=== PATIENT | male | born 1940 | race Caucasian/White ===

== ENCOUNTER 2020-12-21 13:40 | Inpatient (IN) | payer OTHER, MEDICARE, SELFPAY ==
[2020-12-21] VITALS (9 sets, daily range): BP systolic 123–135; BP diastolic 70–78; PULSE 68–116; RESP 18–25; TEMP 19.6–37.3; O2SAT 90–95; BMI 26.5
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
--- NOTE | 2020-12-21 14:03 | XRR_ITS ---
PROCEDURE INFORMATION: Exam: XR Chest Exam date and time: 12/21/2020 2:03 PM Age: 80 years old Clinical indication: Cough and shortness of breath; Patient HX: Short of breath, cough, congestion; Additional info: Covid TECHNIQUE: Imaging protocol: XR of the chest. Views: 1 view. COMPARISON: CT Abdomen/Pelvis Renal [id number] 11/18/2016 9:03 AM FINDINGS: Lungs: Suggestion of subtle peripheral opacities are scarring throughout both lungs. Left costophrenic blunting most likely secondary to scarring versus trace pleural effusion. Pleural spaces: Please see lung section. No pneumothorax. Heart/Mediastinum: Unremarkable. No cardiomegaly. Bones/joints: Sequela of ACDF in the lower cervical spine. XR/XR chest 1V portable [id number] IMPRESSION: Subtle peripheral opacities within both lungs, most suggestive of either multifocal pneumonia or scarring.
--- NOTE | 2020-12-21 14:04 | ECG_ITS ---
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 Measurements Intervals [place] Rate: 105 P: 35 MT: 136 QRS: 118 QRSD: 154 T: 23 QT: 368 QTc: 487 Interpretive Statements SINUS TACHYCARDIA RIGHT AXIS DEVIATION [QRS AXIS > 100] RIGHT BUNDLE BRANCH BLOCK [120+ ms QRS DURATION, UPRIGHT V1, 40+ ms S IN I/aVL/V4/V5/V6] No previous ECG available for comparison Electronically Signed On 12-21-2020 23:58:26 CDT by Bakari Wilson M.D. [id number]
[2020-12-21] MEDS: benzonatate 100 mg Capsule PO (14:20)
[2020-12-21] MEDS: ondansetron 2 mg/ML SDV 2 mL 4 MG IV (14:20)
[2020-12-21] MEDS: acetaminophen 325 mg Tablet 650 MG PO (14:20)
[2020-12-21] MEDS: sodium chloride 0.9% 1,000 ML 999 ML IV ×2 (14:21→15:54)
[2020-12-21 14:33] LABS: Basophils % 0.1 %; Hematocrit 46.8 % (42.0-52.0); Hemoglobin 15.9 g/dL (11.7-16.6); Lymphocytes # 0.8 10^3/uL (0.8-4.8); Mean Corpuscular Hemoglobin 31.7 pg (28.0-34.0); Mean Corpuscular Volume 93.2 fl (80-94); Monocytes # 0.3 10^3/uL (0.2-0.9); Monocytes % 2.7 %; Neutrophils # 8.43 10^3/uL (1.8-7.7); Neutrophils % 88.3 %; Nucleated Red Blood Cells % 0 %; Platelet Count 427 10^3/cmm (130-400); Red Blood Count 5.02 10^6/uL (4.1-5.3); Red Cell Distribution Width 12.5 % (12.1-15.1); White Blood Count 9.6 10^3/uL (4.0-10.0)
--- NOTE | 2020-12-21 14:50 | CTR_ITS ---
PROCEDURE INFORMATION: Exam: CTA Chest With Contrast Exam date and time: 12/21/2020 2:50 PM Age: 80 years old Clinical indication: Cough and shortness of breath; Additional info: Hypoxemia, tachycardia, chest pain TECHNIQUE: Imaging protocol: Computed tomographic angiography of the chest with contrast. 3D rendering (Not supervised by radiologist): MIP and/or 3D reconstructed images were created by the technologist. Radiation optimization: All CT scans at this facility use at least one of these dose optimization techniques: automated exposure control; mA and/or kV adjustment per patient size (includes targeted exams where dose is matched to clinical indication); or iterative reconstruction. Contrast material: OMNI 350; Contrast volume: 95 ml; Contrast route: INTRAVENOUS (IV); COMPARISON: CR XR chest 1V portable [id number] 12/21/2020 2:30 PM RADIATION DOSE METRICS: Total DLP (mGy-cm): 571.69 FINDINGS: Pulmonary arteries: Normal. No pulmonary emboli. Aorta: Unremarkable. No aortic aneurysm. No aortic dissection. Lungs: Peripheral ground-glass opacities throughout both lungs. There is suggestion of early traction bronchiectasis/fibrosis in the region of the opacities. Pleural spaces: Unremarkable. No pneumothorax. No pleural effusion. Heart: Unremarkable. No cardiomegaly. No pericardial effusion. Lymph nodes: Unremarkable. No enlarged lymph nodes. Stomach and bowel: Large hiatal hernia containing the majority of the stomach. Bones/joints: No acute fracture. Sequela of ACDF in the lower cervical spine. Soft tissues: Unremarkable. CT/CT angio chest PE protcl [id number] IMPRESSION: 1. Negative for pulmonary embolism. 2. Peripheral ground-glass opacities throughout both lungs consistent with COVID pneumonia. Imaging appearance is suggestive of early traction bronchiectasis/fibrosis in the region of the opacities. 3. Large hiatal hernia noted containing the majority of the stomach. Radiation Dose CTDIVOL = (mGy): DLP = 571.69 (mGy-cm)
[2020-12-21 14:51] LABS: Troponin(5th) Baseline 15 ng/L (0-15)
[2020-12-21 15:24] LABS: Alanine Aminotransferase 11 U/L (0-41); Albumin Level 3.8 g/dL (3.5-5.2); Alkaline Phosphatase 85 IU/L (40-130); Anion Gap 23.7 (5-19); Aspartate Amino Transferase 25 U/L (0-40); Blood Urea Nitrogen 35 mg/dL (8-23); C Reactive Protein 194.7 mg/L (0.0-4.9); Carbon Dioxide 20 mmol/L (22-29); Chloride 92 mmol/L (98-107); Globulin 3.7 g/dL (1.3-4.6); Glucose 131 mg/dL (65-115); Osmolality Calculated 284 mOsm/kg (285-295); Potassium 3.7 mmol/L (3.5-5.1); Sodium 132 mmol/L (136-145); Total Bilirubin 1.2 mg/dL (0.15-1.2); Total Protein 7.5 g/dL (6.6-8.7)
[2020-12-21 15:31] LABS: Procalcitonin 0.14 ng/mL (0-0.5)
[2020-12-21 15:32] LABS: ABG PCO2 31.5 mmHg (35-45); ABG PH Result 7.44 (7.35-7.45); Arterial Blood Gas Hematocrit 44.5 % (42-52); Base Excess ABG -1.9 mmol/L (-2.0-2.0); Blood Gas Allen Test Pos; Blood Gas LPM 3.5 %; Blood Gas Operator Identificat AMH; Blood Gas Sample Site Radial, left; Blood Gas Sample Type Arterial; HCO3 ABG 21.3 mmol/L (22-26); Oxygen Device NC
[2020-12-21 15:54] LABS: Troponin 5 2HR 11.22 ng/L (0-15)
[2020-12-21] MEDS: cefTRIAXone 1,000 MG in sodium chloride 0.9% (plus) 50 ML 100 MG IV (15:54)
[2020-12-21] MEDS: doxycycline 100 MG in sodium chloride 0.9% (plus) 100 ML IV (15:54)
[2020-12-21 15:58] LABS: Troponin 5 2HR Delta -3.78 ABS# (0-10)
--- NOTE | 2020-12-21 16:04 | ECG_ITS ---
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 Measurements Intervals [place] Rate: 87 P: 25 KS: 153 QRS: 78 QRSD: 156 T: -19 QT: 381 QTc: 460 Interpretive Statements SINUS RHYTHM RIGHT BUNDLE BRANCH BLOCK [120+ ms QRS DURATION, UPRIGHT V1, 40+ ms S IN I/aVL/V4/V5/V6] Compared to ECG 12/21/2020 14:14:31 Sinus tachycardia no longer present Right-axis deviation no longer present Electronically Signed On 12-22-2020 0:09:58 CDT by Bakari Wilson M.D. [id number]
[2020-12-21 16:12] LABS: Calcium 9.3 mg/dL (8.5-10.5)
[2020-12-21 16:54] LABS: Reflex Lactate Order REFLEX LACTIC ORDERD
--- NOTE | 2020-12-21 17:16 | PC.NURSE ---
PTs daughter called this nurse asked the pt if it was ok to given info. pt stated that it would be fine to share info with her. The pt also wanted to add her to his facesheet as a contact. Registration was contacted and the pts daughter was added
[2020-12-21] MEDS: iohexol 350 mg/mL 100 mL Btl IV (18:36)
--- NOTE | 2020-12-21 20:04 | ECG_ITS ---
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 Measurements Intervals [place] Rate: 71 P: 42 NM: 164 QRS: 83 QRSD: 153 T: -10 QT: 407 QTc: 443 Interpretive Statements SINUS RHYTHM WITH FREQUENT VENTRICULAR PREMATURE COMPLEXES RIGHT BUNDLE BRANCH BLOCK [120+ ms QRS DURATION, UPRIGHT V1, 40+ ms S IN I/aVL/V4/V5/V6] Compared to ECG 12/21/2020 16:11:32 Ventricular premature complex(es) now present Heavy baseline artifact in the limb leads. Defective EKG Electronically Signed On 12-22-2020 0:11:11 CDT by Bakari Wilson M.D. [id number]
[2020-12-21 20:19] LABS: Lactic Acid level (Lactate) 1.6 mmol/L (0.5-2.2)
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
--- NOTE | 2020-12-21 20:46 | PC.NURSE ---
patient resting on bed, wakes to verbal stimuli, denies needs at this time, no distress noted
[2020-12-21 23:13] LABS: Creatine Phosphokinase 65 U/L (39-308); Lactate Dehydrogenase 345 U/L (135-225); NT Pro B Type Natriuretic Pept 95 pg/mL (0-450)
[2020-12-21] MEDS: remdesivir 200 MG in sodium chloride 0.9% (100 ml) 100 ML 100 MG IV (23:22)
[2020-12-21] MEDS: dexamethasone 4 mg/mL INJ 6 MG IVP (23:24)
[2020-12-21] MEDS: enoxaparin 40 mg/0.4 mL Syringe SUBCUT (23:25)
[2020-12-21 23:31] LABS: Ferritin 1965 ng/mL (30-400)
[2020-12-22] VITALS (11 sets, daily range): BP systolic 123–146; BP diastolic 59–97; PULSE 62–97; RESP 18–32; TEMP 36.1–36.9; O2SAT 88–92
[2020-12-22 00:09] LABS: SARS Covid-2 Antigen Negative (Negative)
[2020-12-22 06:01] LABS: Basophils % 0.2 %; Hematocrit 40.7 % (42.0-52.0); Hemoglobin 13.8 g/dL (11.7-16.6); Lymphocytes # 0.4 10^3/uL (0.8-4.8); Lymphocytes % 6.5 %; Mean Corpuscular HGB Conc 33.9 g/dL (30.0-36.0); Mean Corpuscular Hemoglobin 31.6 pg (28.0-34.0); Mean Corpuscular Volume 93.1 fl (80-94); Mean Platelet Volume 9.5 fL (7.4-10.4); Monocytes # 0.1 10^3/uL (0.2-0.9); Monocytes % 2.2 %; Neutrophils # 5.25 10^3/uL (1.8-7.7); Neutrophils % 90.1 %; Nucleated Red Blood Cells % 0 %; Platelet Count 349 10^3/cmm (130-400); Red Blood Count 4.37 10^6/uL (4.1-5.3); Red Cell Distribution Width 12.5 % (12.1-15.1); White Blood Count 5.8 10^3/uL (4.0-10.0)
[2020-12-22 06:19] LABS: INR 1.13 (0.8-1.2)
[2020-12-22 06:21] LABS: Fibrinogen 780 mg/dL (174-498); Partial Thromboplastin Time 40.6 SECONDS (23.9-36.7)
[2020-12-22 06:29] LABS: Alanine Aminotransferase 9 U/L (0-41); Albumin Level 3.2 g/dL (3.5-5.2); Alkaline Phosphatase 70 IU/L (40-130); Anion Gap 16.2 (5-19); Aspartate Amino Transferase 19 U/L (0-40); Blood Urea Nitrogen 23 mg/dL (8-23); Calcium 9.2 mg/dL (8.5-10.5); Carbon Dioxide 24 mmol/L (22-29); Chloride 96 mmol/L (98-107); Globulin 3.9 g/dL (1.3-4.6); Glucose 138 mg/dL (65-115); Magnesium 2.5 mg/dL (1.7-2.3); Osmolality Calculated 280 mOsm/kg (285-295); Phosphorus 3.3 mg/dL (2.5-4.5); Potassium 4.2 mmol/L (3.5-5.1); Sodium 132 mmol/L (136-145); Total Bilirubin 0.7 mg/dL (0.15-1.2); Total Protein 7.1 g/dL (6.6-8.7)
[2020-12-22 07:52] LABS: D Dimer 1.35 ug/mIFEU (0-0.59)
[2020-12-22] MEDS: ascorbic acid 500 mg Tablet 1000 MG PO ×2 (09:02→17:57)
[2020-12-22] MEDS: pantoprazole DR 40 mg Tablet PO (09:03)
[2020-12-22] MEDS: cholecalciferol (vitamin D3) 1,000 unit Tablet 2000 UNIT PO (09:03)
--- NOTE | 2020-12-22 09:26 | PC.CHAP ---
Pastoral Care Encounter/Spiritual Assessment Type of Contact [] Declined physical therapy aid visit [] Patient/Family/Request visit [] Outpatient visit [] Follow-up visit [] Physician referral [] Code/Alert [x Routine visit [] Staff referral [] Actively dying [] Patient sleeping [] Family support [] [] Out of room [] Palliative care [] [] Receiving care in room [] Pre-surgical visit [] Trauma [] Long length of stay [] ICU visit [x] Other: 2a Relational/Emotional Strength [] Patient feels connected with others/family/visitors/staff [] Distress [] Loneliness/isolation [] Abandonment Spirituality of Patient [] Person of Tawanna [] Attends Mormonism of their [place]awanna [] Believes in Prayer [] Reads Bible or Latter-Day materials [] There are Spiritual issues to be addressed Char Conveyor Tender Interventions [x] Prayer [] Active listening [] Non-anxious presence [] Spiritual/emotional support [] Crisis/trauma care [] Spiritual counseling [] Bereavement support [] Provided bereavement packet [] Provided Bible/devotional materials [] Provided toy/stuffed animal, coloring book to patient or family member [] Provided Communion [] Anointing/[place] [] Salvation [x] Completed spiritual assessment [] Other: Impact on Illness or Injury [] Angry [] Fearful [] Anxious [] Often cries [] Exhaustion [] Unable to work [] Unable to attend hoahaoism [] Unable to walk/stand [] Unable to read [] Unable to drive [] Unable to eat/drink [] Unable to sleep [] Unable to be with family [] Patient intubated [] Other: Summary Time spent with patient
--- NOTE | 2020-12-22 10:48 | PC.NURSE ---
spoke with and updated her on how pt was doing this am.
--- NOTE | 2020-12-22 12:29 | P.PN_ITS ---
Subjective Subjective: Interval history: Patient was seen and examined this morning, he was saturating well on 4 L nasal cannula, Was able to go to the bathroom in order to void urine, No active chest pain CT rule out PE, H&P reviewed Will request test from the [place] Hold off on interleukin-6 inhibitor dosage Vitals/I&O/Wt Last Vital Signs Temp 97.8 F 12/22/20 12:00 Pulse 97 12/22/20 12:00 Resp 18 12/22/20 12:00 BP 144/77 12/22/20 12:00 Pulse Ox 90 12/22/20 12:00 12/21/20 12/22/20 12/22/20 22:59 06:59 14:59 Intake Total 2150 / 2150 100 / 2250 240 / 240 Balance 2150 / 2150 100 / 2250 240 / 240 Weight last 48 hrs Weight 79.52 kg Weight 83.915 kg Physical Exam Narrative: EXAM NARRATIVE: Patient was seen and examined in the room he was very pleasant and cooperative during my evaluation Mild hearing impairment S1, S2 sinus rhythm no murmur appreciated Bilateral breath sounds without adventitious rhonchi or crackles Abdomen soft No lower extremity edema Appropriate mood and affect EOMI, PERRLA no neurological deficit Data : 12/22/20 05:46 12/22/20 05:46 Micro: Microbiology 12/21/20 15:05 Blood Culture - Preliminary Blood SPECIMEN COLLECTED 12/21/20 15:09 Blood Culture - Preliminary Blood SPECIMEN COLLECTED A&P Assessment and plan (1) Acute respiratory failure with hypoxia: Status: Acute (2) COVID-19: Status: Acute (3) Pneumonia due to COVID-19 virus: Status: Acute Additional A&P Information Acute hypoxia related to COVID-19 pneumonia Currently saturating well on 4 L nasal cannula Hemodynamically stable other than systolic blood pressure above 140 mmHg Continue remdesivir and Decadron Procalcitonin unremarkable, CTA rule out PE, Encourage incentive spirometry, proning, CRP is high however he is on 4 L saturating well would hold off on interleukin-6 inhibitor dosage for now, will request Covid test results from the [place] facility Continue vitamin C, D and zinc supplementation Judicious use of fluids Full code Regular diet DVT prophylaxis Lovenox Attestations Medical Necessity Statement*: Continue medical management for hypoxia related to COVID-19 Time Spent in Patient Care: less than 15 minutes Coding Level of Care Code 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
--- NOTE | 2020-12-22 13:42 | USR_ITS ---
PROCEDURE INFORMATION: Exam: US Duplex Lower Extremity Veins, Bilateral Exam date and time: 12/22/2020 1:42 PM Age: 80 years old Clinical indication: Swelling (edema) of limb; Lower extremity, bilateral; Additional info: Dvt TECHNIQUE: Imaging protocol: Real-time duplex ultrasound of the extremities with 2-D tellez scale, color Doppler flow and spectral waveform analysis with image documentation. Complete exam focused on the bilateral lower extremity veins. COMPARISON: [place] [facility] [place] Pelvic Limited 01/04/2019 1:49 PM FINDINGS: Right deep veins: Unremarkable. The common femoral, femoral, proximal profunda femoral, popliteal, posterior tibial and peroneal veins are patent without thrombus. Normal Doppler waveforms. Normal compressibility and/or augmentation response. Right superficial veins: Saphenofemoral junction is patent without thrombus. Left deep veins: Unremarkable. The common femoral, femoral, proximal profunda femoral, popliteal, posterior tibial and peroneal veins are patent without thrombus. Normal Doppler waveforms. Normal compressibility and/or augmentation response. Left superficial veins: Saphenofemoral junction is patent without thrombus. Soft tissues: Unremarkable. US/CV venous duplex [facility] [id number] IMPRESSION: No sonographic evidence of deep vein thrombosis.
--- NOTE | 2020-12-22 17:48 | PC.RESP ---
RT Shift Note Frequent safety and respiratory rounds continue. Orders completed as indicated. Patient monitored pre and post treatments throughout shift. Patient tolerated treatments appropriately. Condition did not change. Patient and/or traffic workforce representative educated on respiratory treatment and medications. Patient and/or traffic workforce representative verbalized understanding. Will continue to monitor patient progress.
[2020-12-22] MEDS: remdesivir 100 MG in sodium chloride 0.9% (100 ml) 100 ML IV (17:57)
--- NOTE | 2020-12-22 19:03 | PC.NURSE ---
shift summary pt has not had much of an appetite this shift, he has been up to bathroom with stand by assist, pt tolerates well, oxygen saturation has been between 89-93% on 4 liters n/c. pt states he feels better than he did yesterday, but not 100% better. pt has not had a BM in 3 days he said this is not his regular, but he also has not been able to eat much lately either. daughter and has been updated today.
[2020-12-22] MEDS: dexamethasone 4 mg/mL INJ 6 MG IVP (21:31)
[2020-12-22] MEDS: enoxaparin 40 mg/0.4 mL Syringe SUBCUT (21:31)
[2020-12-23] VITALS (13 sets, daily range): BP systolic 122–147; BP diastolic 55–79; PULSE 62–95; RESP 17–33; TEMP 36.4–36.8; O2SAT 85–98
[2020-12-23 05:14] LABS: Basophils % 0.1 %; Hematocrit 40.6 % (42.0-52.0); Hemoglobin 13.6 g/dL (11.7-16.6); Lymphocytes # 0.5 10^3/uL (0.8-4.8); Lymphocytes % 6.7 %; Mean Corpuscular HGB Conc 33.5 g/dL (30.0-36.0); Mean Corpuscular Hemoglobin 31.5 pg (28.0-34.0); Mean Platelet Volume 9.6 fL (7.4-10.4); Monocytes # 0.2 10^3/uL (0.2-0.9); Monocytes % 3.3 %; Neutrophils # 6.31 10^3/uL (1.8-7.7); Neutrophils % 89.3 %; Nucleated Red Blood Cells % 0 %; Platelet Count 419 10^3/cmm (130-400); Red Blood Count 4.32 10^6/uL (4.1-5.3); Red Cell Distribution Width 12.4 % (12.1-15.1); White Blood Count 7.1 10^3/uL (4.0-10.0)
[2020-12-23 05:33] LABS: Blood Urea Nitrogen 19 mg/dL (8-23); C Reactive Protein 98.6 mg/L (0.0-4.9); Calcium 9.1 mg/dL (8.5-10.5); Carbon Dioxide 23 mmol/L (22-29); Chloride 98 mmol/L (98-107); Glucose 184 mg/dL (65-115); Osmolality Calculated 285 mOsm/kg (285-295); Sodium 134 mmol/L (136-145)
[2020-12-23] MEDS: ascorbic acid 500 mg Tablet 1000 MG PO ×2 (08:31→18:17)
[2020-12-23] MEDS: cholecalciferol (vitamin D3) 1,000 unit Tablet 2000 UNIT PO (08:31)
[2020-12-23] MEDS: pantoprazole DR 40 mg Tablet PO (08:31)
--- NOTE | 2020-12-23 13:01 | PM.PN ---
Subjective Subjective: Interval history: Patient was seen and examined this morning, patient stated: I am happy with my progress, able to finish meals, walk around the room O2 saturation is 90 to 91% on 4 L nasal cannula No diarrhea, fever chest pain or shortness of breath Did visit him multiple times yesterday, talked with his daughter over the phone who is in [place], she is a physical therapist, patient does have hearing impairment, today he was able to understand me properly, his questions were answered to his satisfaction, he understood his treatment plan and disposition Vitals/I&O/Wt Last Vital Signs Temp 98.2 F 12/23/20 11:55 Pulse 86 12/23/20 11:55 Resp 17 12/23/20 11:55 BP 139/79 12/23/20 11:55 Pulse Ox 91 12/23/20 11:55 12/22/20 12/23/20 12/23/20 22:59 06:59 14:59 Intake Total 820 / 1180 120 / 1300 120 / 120 Output Total 400 / 400 Balance 820 / 1180 -280 / 900 120 / 120 Weight last 48 hrs Weight 81.329 kg Weight 79.52 kg Weight 83.915 kg Physical Exam Narrative: EXAM NARRATIVE: Patient was sitting in his bed watching television without any active discomfort He was saturating well on 4 L nasal cannula Endorsing improvement in his energy No neurological deficit EOMI, PERRLA Very pleasant and cooperative during my evaluation Noticed mild hearing impairment S1, S2 no murmur or heart failure signs Abdomen soft nontender Bilateral breath sounds without wheezing crackles or rhonchi Data : 12/23/20 04:55 12/23/20 04:55 Micro: Microbiology 12/21/20 23:30 Gram Stain - Final Sputum - Expectorated Sputum 12/21/20 15:05 Blood Culture - Preliminary Blood NEGATIVE TO DATE 12/21/20 15:09 Blood Culture - Preliminary Blood NEGATIVE TO DATE A&P Assessment and plan (1) Acute respiratory failure with hypoxia: Status: Acute (2) COVID-19: Status: Acute (3) Pneumonia due to COVID-19 virus: Status: Acute (4) Hearing impairment: Status: Acute Additional A&P Information Acute hypoxic respiratory failure related to COVID-19 Procalcitonin unremarkable Not on any antibiotics Continue remdesivir and Decadron Currently saturating well on 4 L nasal cannula Endorsing improvement in his energy Afebrile, No acute worsening of symptoms, Plan to discharge him home tomorrow Home O2 eval at the time of discharge PT evaluation today No signs of DVT or PE Not a candidate of interleukin-6 inhibitor as his oxygen requirement has not worsened, inflammatory markers trending down Full code Regular diet DVT prophylaxis Lovenox Disposition plan: Plan to discharge him tomorrow after PT and home O2 eval if O2 saturation stays above 90% on 4-5 L, quarantine for 20 days and get vaccination after 90 days Attestations Medical Necessity Statement*: Continue medical management for hypoxia anticipating discharge tomorrow Time Spent in Patient Care: less than 15 minutes Coding Level of Care Code Acute 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
[2020-12-23] MEDS: remdesivir 100 MG in sodium chloride 0.9% (100 ml) 100 ML IV (18:17)
[2020-12-23] MEDS: enoxaparin 40 mg/0.4 mL Syringe SUBCUT (21:43)
[2020-12-23] MEDS: dexamethasone 4 mg/mL INJ 6 MG IVP (21:58)
[2020-12-24 03:41] VITALS: BP 158/61; PULSE 84; RESP 18; TEMP 36.7; O2SAT 90
[2020-12-24 05:14] LABS: Basophils % 0.1 %; Hematocrit 38.9 % (42.0-52.0); Hemoglobin 13.1 g/dL (11.7-16.6); Lymphocytes # 0.4 10^3/uL (0.8-4.8); Mean Corpuscular HGB Conc 33.7 g/dL (30.0-36.0); Mean Corpuscular Hemoglobin 31.5 pg (28.0-34.0); Mean Corpuscular Volume 93.5 fl (80-94); Mean Platelet Volume 9.6 fL (7.4-10.4); Monocytes # 0.3 10^3/uL (0.2-0.9); Monocytes % 3.3 %; Neutrophils # 8.27 10^3/uL (1.8-7.7); Neutrophils % 91.9 %; Nucleated Red Blood Cells % 0 %; Platelet Count 518 10^3/cmm (130-400); Red Blood Count 4.16 10^6/uL (4.1-5.3); Red Cell Distribution Width 12.7 % (12.1-15.1)
[2020-12-24 05:38] LABS: Anion Gap 14.9 (5-19); Blood Urea Nitrogen 14 mg/dL (8-23); C Reactive Protein 46.2 mg/L (0.0-4.9); Carbon Dioxide 25 mmol/L (22-29); Chloride 99 mmol/L (98-107); Glucose 191 mg/dL (65-115); Osmolality Calculated 286 mOsm/kg (285-295); Potassium 3.9 mmol/L (3.5-5.1); Sodium 135 mmol/L (136-145)
[2020-12-24 07:58] VITALS: PULSE 86; RESP 18; O2SAT 90
[2020-12-24 08:00] VITALS: BP 134/77; PULSE 86; RESP 19; TEMP 36.4; O2SAT 91
[2020-12-24] MEDS: zinc gluconate 50 mg Tablet PO (08:47)
[2020-12-24] MEDS: pantoprazole DR 40 mg Tablet PO (08:47)
[2020-12-24] MEDS: cholecalciferol (vitamin D3) 1,000 unit Tablet 2000 UNIT PO (08:47)
[2020-12-24] MEDS: ascorbic acid 500 mg Tablet 1000 MG PO (08:47)
[2020-12-24 10:00] VITALS: O2SAT 87; O2SAT 90; O2SAT 91
--- NOTE | 2020-12-24 10:26 | PC.SOCIAL ---
IMM Update Pg. 2 of IMM updated and reviewed with patient over the phone. Verbalized understanding. Initialed, dated, and timed and placed in chart.
--- NOTE | 2020-12-24 11:12 | PM.DCS ---
Discharge Providers Date of Admission: 12/21/20 20:00 Date of Discharge: December 24, 2020 Attending Provider at Admission: Lyn Camacho MD Attending Provider at Discharge: Sahil Zaragoza MD Primary Care Provider: Go Mullen MD Diagnoses at Discharge Discharge Diagnosis (1) Acute respiratory failure with hypoxia: Status: Acute (2) COVID-19: Status: Acute (3) Pneumonia due to COVID-19 virus: Status: Acute (4) Hearing impairment: Status: Acute Reason for Visit Reason for Visit: COVID/RESP DISTRESS Hospital Course Hospital Course This is a 80-year-old male with a past medical history of BPH, vitamin D deficiency, who presents [facility] for not feeling well, shortness of breath, cough. [facility] for acute hypoxic respiratory failure secondary COVID-19 pneumonia, requiring up to 4 L nasal cannula, was treated with Decadron, not severe, albuterol, Advair, Spiriva, and clinically monitored. Patient clinically improved, on day 3 of admission, patient was ambulated without significant symptomatology, down to 3 L, remained afebrile, lungs no wheezing or crackles, no respiratory distress, clinically was doing well. Patient was adamant about discharge home, discussed the risks of leaving the hospital prematurely without full 5 days of remdesivir, as he still on 3 L nasal cannula, he voiced understanding, all questions answered, accepted the risks. Including but not limited to worsening respiratory status, significant morbidity and mortality associated. Still adamant about going home, discharged home on 3 L nasal cannula. In terms of his hypercoagulability prophylaxis for COVID-19, no recent surgery, no previous history of DVT or PE he was fairly mobile around his hospital room, I discussed with patient that he is at low risk of hypercoagulability associated with COVID-19, however low risk does not mean no risk. For now we will not anticoagulate him, however he should monitor for signs of DVT or pulmonary emboli if so go to emergency room. Patient was advised to continue ambulating, continue to be mobile. Physical Exam Const: COMMON NORMALS: no acute distress and patient oriented x3 Lymph: LYMPHATIC: no lymphadenopathy noted Resp: COMMON NORMALS: normal respiratory effort, No retractions, No use of accessory muscles and clear to auscultation bilaterally AUSCULTATION: clear to auscultation bilaterally Cardio: COMMON NORMALS: regular rate, regular rhythm, S1 normal heart sound present, S2 normal heart sound present, No gallops present (Cardio), No clicks present (Cardio) and No murmurs present (Cardio) RATE: regular rate RHYTHM: regular rhythm HEART SOUNDS: S1 normal heart sound present and S2 normal heart sound present GI: COMMON NORMALS: Normal to inspection, nondistended, normoactive bowel sounds present and Soft to palpation PALPATION: Yes Soft to palpation Extremity: COMMON NORMALS: no pedal edema Neuro: COMMON NORMALS: patient oriented x3 Discharge Data Data Completed and Pending: Completed Studies During Hospitalization Category Date Time Status CT angio chest PE protcl [id number] Urge nt Cat Scan 12/21/20 14:50 Completed XR chest 1V chantel ble [id number] Urgent Exams 12/21/20 14:03 [place] [id number] Routin e Ultrasound 12/22/20 13:42 Completed Pending at discharge Category Date Time Status Blood Culture Sta t Lab 12/21/20 15:09 Results Sputum Culture an d Gram Stain Routi ne Lab 12/21/20 23:30 Results Labs from last 24 hours 12/24/20 12/24/20 03:50 03:50 WBC 9.0 RBC 4.16 Hgb 13.1 Hct 38.9 L MCV 93.5 MCH 31.5 MCHC 33.7 RDW 12.7 Plt Count 518 H MPV 9.6 Neut % (Auto) 91.9 Lymph % (Auto) 4.0 [place] % (Auto) 3.3 Eos % (Auto) 0.0 Baso % (Auto) 0.1 Neut # (Auto) 8.27 H Lymph # (Auto) 0.4 L [place] # (Auto) 0.3 Eos # (Auto) 0.0 Baso # (Auto) 0.0 Nucleated RBC % (a uto) 0 Nucleated RBCs # 0.0 Sodium 135 L Potassium 3.9 Chloride 99 Carbon Dioxide 25 Anion Gap 14.9 BUN 14 Creatinine 0.6 L GFR Calculation Not Reportable Glucose 191 H Calculated Osmolal ity 286 Calcium 9.0 C-Reactive Protein 46.2 H Vitals: Last Vital Signs Temp 97.6 F 12/24/20 08:00 Pulse 86 12/24/20 08:00 Resp 19 H 12/24/20 08:00 BP 134/77 08/19/21 08:00 Pulse Ox 90 12/24/20 10:00 Discharge Plan Discharge Patient Disposition: Home Condition: Stable Prescriptions: New ascorbic acid (vitamin C) [Vitamin C] 500 mg Tablet 1,000 mg PO BID 30 Days Qty: 120 RF: 0 fluticasone propion-salmeterol [Advair Diskus] 250-50 mcg/dose Blister With Device 1 ea inhalation BID.RESPIRATORY 30 Days Qty: 60 RF: 0 Spiriva with HandiHaler 18 mcg Capsule, W/Inhalation Device 18 mcg inhalation DAILY.RESPIRATORY Qty: 30 RF: 0 zinc gluconate 50 mg Tablet 50 mg PO DAILY 30 Days Qty: 30 RF: 0 albuterol sulfate [Ventolin HFA] 90 mcg/actuation Hfa Aerosol Inhaler 1 puff inhalation Q4H.RESPIRATORY PRN (Reason: Shortness Of Breath) Qty: 8.5 RF: 0 amoxicillin-pot clavulanate [Augmentin] 875-125 mg tablet 1 tab PO BID 5 Days Qty: 10 RF: 0 pantoprazole 40 mg Tablet,Delayed Release (Dr/Ec) 40 mg PO DAILY 30 Days Qty: 30 RF: 0 Continued Vitamin D3 50 mcg (2,000 unit) Tablet 50 mcg PO DAILY RF: 0 Discharge Orders: Discharge Order (Routine); Ordered 12/24/20 Ordered By: Sahil Zaragoza Other Ambulatory Orders: DME: Oxygen (Order) Location: None Selected Ordered By: Sahil Zaragoza Referrals: Go Mullen MD [Primary Care Provider] - Discharge Diet: Regular Discharge Activity: Resume usual activity Patient Instructions: Opioid Safety Activity Restrictions/Additional Instructions: -Please continue to self isolate, hand wash, facemask, -Monitor for signs of blood clots, including calf pain, calf swelling, or bloody cough or sudden onset of shortness of breath if so go to emergency room -Please follow-up with primary care provider for discussion of Covid vaccination -Oxygen therapy Discharge Attestations Time Spent in Discharge Care*: less than 30 min Quality Metrics Clinical Quality Measures During this hospital stay, did patient experience: None Coding Level of Care Code Acute Chg FW DC note Exam Detailed Diagnoses Acute respiratory failure with hypoxia J96.01 COVID-19 U07.1 Pneumonia due to COVID-19 virus U07.1; J12.82 Hearing impairment H91.90
[2020-12-24] MEDS: amoxicillin-clav 875-125 mg Tablet 1 TAB PO (11:44)
[2020-12-24 11:51] VITALS: BP 138/76; PULSE 80; RESP 18; TEMP 36.4; O2SAT 91
[2020-12-24 14:45] VITALS: BP 138/76; PULSE 80; RESP 18; TEMP 36.4; O2SAT 91
--- NOTE | 2020-12-29 11:15 | PC.SOCIAL ---
discharge follow up call made to patient. patient is using O2 at 4L, NC with sats of 96%. I told patient he could turn the oxygen down as long as he wasn't short of breath and make sure to check his sats. He has follow up appointment with Dr. Wolf tomorrow. He will discuss with her about lower oxygen even more or not using.
== END 2020-12-24 14:47 | disposition home or self-care (01) | DRG 177 ==
LOC: ER 19:59 → MS 2A 20:11
PROVIDERS: Internal Medicine; Admitting Provider Hospitalist; Emergency Provider Emergency Medicine; PCP Family Medicine; Visit Provider Family Medicine
DX: U07.1 COVID-19 (principal); J12.82 Pneumonia due to coronavirus disease 2019; J96.01 Acute respiratory failure with hypoxia; H91.90 Unspecified hearing loss, unspecified ear; N40.0 Benign prostatic hyperplasia without lower urinary tract symptoms; I25.10 Atherosclerotic heart disease of native coronary artery without angina pectoris; I12.9 Hypertensive chronic kidney disease with stage 1 through stage 4 chronic kidney disease, or unspecified chronic kidney disease; E11.22 Type 2 diabetes mellitus with diabetic chronic kidney disease; N18.9 Chronic kidney disease, unspecified; F03.90 Unspecified dementia, unspecified severity, without behavioral disturbance, psychotic disturbance, mood disturbance, and anxiety; E78.5 Hyperlipidemia, unspecified; Z80.9 Family history of malignant neoplasm, unspecified; Z82.3 Family history of stroke; Z84.89 Family history of other specified conditions; Z87.891 Personal history of nicotine dependence; Z98.890 Other specified postprocedural states
CPT/HCPCS: 36415; 36600; 71045; 71275; 80048; 80053; 82550; 82728; 82803; 83605; 83615; 83735; 83880; 84100; 84145; 84484; 85025; 85378; 85384; 85610; 85730; 86140; 87040; 87070; 87205; 87426; 93005; 93970; 94640; 96365; 96367; 96372; 96375; 97161; 99285; J0696; J1100; J1650; J2405; J3490; J7030; Q9967

== ENCOUNTER 2022-01-14 07:47 | Outpatient (CLI) | payer OTHER, SELFPAY ==
--- NOTE | 2022-01-14 07:57 | IR_ITS ---
WS: [id number] LUMBAR MYELOGRAM HISTORY: LUMBAR RADICULOPATHY/NUMBNESS OF LOWER EXTREMITY COMPARISON: 09/10/2014 FLUOROSCOPY TIME: 1min [id number] # of spot films: 5 Procedure, risks and complications were explained to the patient. Risks including bleeding, infection , headaches, allergic reaction and seizures. Consent has been obtained. With the patient in prone position the skin over the lumbar region is cleansed with ChloraPrep and an esthetized with lidocaine. 22-gauge spinal needle is inserted into the thecal sac at the appropriate level determined by fluoroscopy. Omnipaque 240; 12 ml is injected slowly under fluoroscopy with no co mplications. Needle bevel is perpendicular to the longitudinal fibers of the dura. Stylet is reinsert ed prior to removal of the needle. Patient tolerated the procedure well. Patient will proceed to CT f or further evaluation. Significant narrowing of the central canal at the disc spaces including L2-3, L3-4 and L4-5. Multilev el facet joint arthritis. Osteophytic ridging most significant involving the L1-2 vertebral body leve l. Posterior alignment is near normal. Retrolisthesis by 5 mm of L5. No fractures. Severe degenerative disc disease throughout the lumbar sp ine. IR/IR myelogram [place] lumbar [id number] IMPRESSION: 1. Uncomplicated lumbar myelogram. 2. Severe multilevel lumbar stenosis at the disc levels with advanced facet ari int arthritis and disc space narrowing. 3. Please see lumbar myelogram CT report to follow.
--- NOTE | 2022-01-14 07:57 | CT_ITS ---
WS: [id number] CT MYELOGRAM LUMBAR SPINE HISTORY: LUMBAR RADICULOPATHY/NUMBNESS OF LOWER EXTREMITY TECHNIQUE: Contiguous 2.5 mm axial imaging performed from T12 through the mid sacral level. Bone and soft tissue windows reviewed. Sagittal and coronal reformats are submitted and reviewed. DLP: 1418.[address] scans at [facility] use at least one of these dose optimization techniques: automated e xposure control; mA and/or kV adjustment per patient size (includes targeted exams where dose is matc hed to clinical indication); or iterative reconstruction. COMPARISON: 09/10/2014 Good intrathecal injection. Progression of degenerative disc disease and spondylosis and stenosis sin ce 2015 throughout the lumbar spine. Vacuum disc phenomenon within all the lumbar disks. L5 retrolist hesis by 5.7 mm. 2 mm anterolisthesis of L4. No fracture. Severe disc space narrowing at L1-2 and L5- S1. L1-L2: Moderate annular osteophytic ridging with encroachment on the ventral thecal sac and foramina bilateral osteophytosis. High-grade central and moderate foraminal stenosis. Osteophytes encroach int o the subarticular recesses bilaterally. L2-L3: Diffuse osteophytic ridging and moderate annular disc bulging. Ligamentum flavum hypertrophy a nd facet arthritis. High-grade central stenosis with near complete effacement of CSF. Moderate bilate ral foraminal stenosis. Stenosis predominantly due to osteophytosis. Mild facet arthritis. L3-L4: Moderate diffuse annular disc bulging and osteophytic ridging. Effacement of ventral CSF. Mild ligamentum flavum hypertrophy and facet arthritis. Mild central and LEFT foraminal stenosis. Moderat e RIGHT foraminal stenosis. L4-L5: Diffuse osteophytic ridging and annular disc bulging. Mild central stenosis with moderate bila teral foraminal stenosis encroaching upon the L4 nerve roots. L5-S1: Osteophytic ridging with retrolisthesis of L5 encroaching upon the ventral thecal sac. There i s mild contact on the S1 nerve roots bilaterally. Severe bilateral foraminal stenosis and facet joint arthritis. Mild atherosclerosis aorta. Paravertebral soft tissues are negative. Mild bilateral sacroiliitis. CT/CT lumbar spine w con [id number] IMPRESSION: 1. Mild progression of degenerative disc disease and stenoses throughout the l umbar spine since 09/10/2014. 2. Facet joint arthritis and significant vertebral body osteophytosis. 3. Significant central with moderate bilateral foraminal stenosis at L1-2 and L2-3. 4. Moderate RIGHT foraminal stenosis at L3-4 with mild central and LEFT forami nal stenosis. 5. Moderate bilateral foraminal stenosis at L4-5. 6. Severe bilateral foraminal stenosis at L5-S1.
[2022-01-14] MEDS: iohexol 240 mg/mL 50 mL Btl INTRATHECA (09:45)
== END 2022-01-14 07:48 | disposition home or self-care (01) ==
LOC: RAD 07:47
PROVIDERS: PCP Family Medicine; Visit Provider Surgery
DX: M54.16 Radiculopathy, lumbar region (principal); M47.896 Other spondylosis, lumbar region; M48.061 Spinal stenosis, lumbar region without neurogenic claudication; M48.07 Spinal stenosis, lumbosacral region
CPT/HCPCS: 62304; 72120; 72132

== ENCOUNTER 2022-06-24 06:27 | Emergency (ER) | payer OTHER, SELFPAY ==
[2022-06-24 06:33] VITALS: BP 126/70; PULSE 103; RESP 16; TEMP 38.7; O2SAT 91; BMI 27.9
--- NOTE | 2022-06-24 06:39 | XR_ITS ---
WS: [id number] Portable AP upright chest, 06/24/2022 Clinical Data: dyspnea/cough Comparison: Portable chest, 12/21/2020 Findings: No nodules, masses or effusions are seen. There is a minimal patchy opacity over the medial aspect of the right diaphragm which could represent atelectasis or minimal pneumonia. The heart is n ormal. The pulmonary vascularity is not increased. No pneumothorax is seen. There is a hiatal hernia behind the heart. The patient has had an anterior cervical disc fusion. XR/XR chest 1V portable [id number] Impression: 1. Minimal patchy opacity over surface of right diaphragm which could represent atelectasis and/or pneumonia. 2. Hiatal hernia.
[2022-06-24 06:51] VITALS: BP 126/70; PULSE 103; RESP 16; O2SAT 95
--- NOTE | 2022-06-24 06:51 | ECG_ITS ---
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 Measurements Intervals [place] Rate: 101 P: 26 CT: 170 QRS: 102 QRSD: 154 T: -20 QT: 342 QTc: 444 Interpretive Statements SINUS TACHYCARDIA RIGHT AXIS DEVIATION [QRS AXIS > 100] RIGHT BUNDLE BRANCH BLOCK [120+ ms QRS DURATION, UPRIGHT V1, 40+ ms S IN I/aVL/V4/V5/V6] Compared to ECG 12/21/2020 20:10:41 Right-axis deviation now present Sinus rhythm no longer present Ventricular premature complex(es) no longer present Electronically Signed On 06-24-2022 16:46:58 CONTROL OPERATOR by Ronna Moreland M.D. [id number]
[2022-06-24 07:06] LABS: Basophils % 0.1 %; Hematocrit 45.8 % (42.0-52.0); Hemoglobin 15.6 g/dL (11.7-16.6); Lymphocytes # 0.5 10^3/uL (0.8-4.8); Lymphocytes % 3.2 %; Mean Corpuscular HGB Conc 34.1 g/dL (30.0-36.0); Mean Corpuscular Hemoglobin 31.8 pg (28.0-34.0); Mean Corpuscular Volume 93.5 fl (80-94); Mean Platelet Volume 9.3 fL (7.4-10.4); Monocytes # 0.6 10^3/uL (0.2-0.9); Neutrophils # 14.33 10^3/uL (1.8-7.7); Neutrophils % 92.2 %; Nucleated Red Blood Cells % 0 %; Platelet Count 279 10^3/cmm (130-400); Red Cell Distribution Width 12.9 % (12.1-15.1); White Blood Count 15.5 10^3/uL (4.0-10.0)
[2022-06-24 07:23] LABS: Alanine Aminotransferase 13 U/L (0-41); Albumin Level 4.7 g/dL (3.5-5.2); Alkaline Phosphatase 97 U/L (40-130); Anion Gap 19.1 (5-19); Aspartate Amino Transferase 18 U/L (0-40); Blood Urea Nitrogen 12 mg/dL (8-23); Calcium 9.3 mg/dL (8.5-10.5); Carbon Dioxide 23 mmol/L (22-29); Chloride 96 mmol/L (98-107); Globulin 2.8 g/dL (1.3-4.6); Glucose 161 mg/dL (65-115); Osmolality Calculated 281 mOsm/kg (285-295); Potassium 4.1 mmol/L (3.5-5.1); Sodium 134 mmol/L (136-145); Total Bilirubin 1.2 mg/dL (0.15-1.2); Total Protein 7.5 g/dL (6.6-8.7)
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
[2022-06-24 08:30] LABS: Influenza A by IFA negative (Negative); Influenza B by IFA negative (Negative)
[2022-06-24] MEDS: sodium chloride 0.9% 1,000 ML 999 ML IV (09:05)
[2022-06-24 09:12] VITALS: PULSE 92; RESP 22
[2022-06-24 09:42] LABS: Adenovirus Not Detected (NOT DETECT); Chlamydia Pneumoniae Not Detected (NOT DETECT); Coronavirus 229E,HKU1,NL63,OC4 Not Detected (NOT DETECT); Human Metapneumovirus Not Detected (NOT DETECT); Human Rhinovirus/Enterovirus Not Detected (NOT DETECT); Influenza A Not Detected (NOT DETECT); Influenza A H1 Not Detected (NOT DETECT); Influenza A H1-2009 Not Detected (NOT DETECT); Influenza A H3 Not Detected (NOT DETECT); Influenza B Not Detected (NOT DETECT); Mycoplasma Pneumoniae Not Detected (NOT DETECT); Parainfluenza Virus Type 1 Not Detected (NOT DETECT); Parainfluenza Virus Type 2 Not Detected (NOT DETECT); Parainfluenza Virus Type 3 Not Detected (NOT DETECT); Parainfluenza Virus Type 4 Not Detected (NOT DETECT); Respiratory Syncytial Virus A Not Detected (NOT DETECT); Respiratory Syncytial Virus B Not Detected (NOT DETECT); SARS-COV-2 Not Detected (NOT DETECT)
== END 2022-06-24 10:09 | disposition home or self-care (01) ==
PROVIDERS: Emergency Provider Family Medicine; PCP Family Medicine
DX: J18.9 Pneumonia, unspecified organism (principal); Z20.822 Contact with and (suspected) exposure to COVID-19; K44.9 Diaphragmatic hernia without obstruction or gangrene; Z87.891 Personal history of nicotine dependence
CPT/HCPCS: 36415; 71045; 80053; 85025; 87040; 87635; 87804; 93005; 99283; J7030

== ENCOUNTER 2023-01-30 16:51 | Inpatient (IN) | payer OTHER, SELFPAY ==
[2023-01-30] VITALS (29 sets, daily range): BP systolic 77–198; BP diastolic 61–144; PULSE 64–146; RESP 13–40; TEMP 36.4–36.5; O2SAT 96–100; BMI 29.0
--- NOTE | 2023-01-30 16:58 | ECG_ITS ---
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 Measurements Intervals [place] Rate: 97 P: 55 [place]: 178 QRS: 56 QRSD: 126 T: 22 QT: 327 QTc: 416 Interpretive Statements SINUS RHYTHM WITH MARKED SINUS ARRHYTHMIA POSSIBLE RIGHT VENTRICULAR CONDUCTION DELAY [RSR (QR) IN V1/V2] ANTERIOR MYOCARDIAL INFARCTION , POSSIBLY ACUTE [40+ ms Q WAVE AND/OR ST/T ABNORMALITY IN V3/V4] POSSIBLE INFERIOR MYOCARDIAL INFARCTION , PROBABLY OLD [30 ms Q WAVE IN II/aVF] ACUTE [place] Compared to ECG 06/24/2022 06:51:18 Myocardial infarct finding now present Sinus tachycardia no longer present Right-axis deviation no longer present Right bundle-branch block no longer present Electronically Signed On 01-30-2023 18:46:06 CDT by Rusty Newman M.D. [id number]
--- NOTE | 2023-01-30 17:02 | XRR_ITS ---
PROCEDURE INFORMATION: Exam: XR Chest Exam date and time: 01/30/2023 5:18 PM Age: 82 years old Clinical indication: Pain; Chest pressure; Additional info: Chest pain TECHNIQUE: Imaging protocol: Radiologic exam of the chest. Views: 1 view. COMPARISON: CR XR chest 1V portable [id number] 06/24/2022 7:08 AM FINDINGS: Lungs: Unremarkable. No consolidation. Pleural spaces: Unremarkable. No pleural effusion. No pneumothorax. Heart/Mediastinum: A hiatal hernia is seen.. No cardiomegaly. Bones/joints: No acute findings. A lower cervical spine metallic plate is seen. XR/XR chest 1V portable [id number] IMPRESSION: No acute findings.
[2023-01-30] MEDS: aspirin 325 mg Tablet PO (17:06)
[2023-01-30] MEDS: clopidogrel 300 mg Tablet 600 MG PO (17:06)
[2023-01-30] MEDS: heparin 5,000 unit/mL INJ 1 mL 4000 UNIT IVP (17:07)
[2023-01-30] MEDS: nitroglycerin drip 50 MG/250 ML PREMIX IV (17:15)
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
[2023-01-30 17:17] LABS: Basophils % 0.3 %; Eosinophils # 0.1 10^3/uL (0.0-0.8); Eosinophils % 0.8 %; Hematocrit 47.5 % (37-53); Lymphocytes # 2.8 10^3/uL (0.8-4.8); Lymphocytes % 19.7 %; Mean Corpuscular HGB Conc 34.5 g/dL (30-55); Mean Corpuscular Hemoglobin 32.2 pg (27-33); Mean Corpuscular Volume 93.3 fl (82-101); Mean Platelet Volume 9.1 fL (7.4-10.4); Monocytes # 1.1 10^3/uL (0.2-0.9); Monocytes % 7.3 %; Neutrophils # 10.22 10^3/uL (1.8-7.7); Neutrophils % 71.6 %; Nucleated Red Blood Cells % 0 %; Platelet Count 315 10^3/cmm (157-399); Red Blood Count 5.09 10^6/uL (3.85-5.65); Red Cell Distribution Width 12.7 % (12.1-15.1)
[2023-01-30] MEDS: sodium chloride 0.9% 1,000 ML 999 ML IV (17:17)
[2023-01-30] MEDS: FUROsemide 10 mg/mL SDV 4mL 40 MG IVP (17:21)
[2023-01-30] MEDS: morphine 4 mg/mL SDV 1 mL IVP (17:21)
[2023-01-30] MEDS: ondansetron 2 mg/ML SDV 2 mL 4 MG (17:25)
--- NOTE | 2023-01-30 17:25 | PC.NURSE ---
Spouse contacted for pt. Pt able to speak with spouse and update her. Spouse on the way. Phone number is [phone]
--- NOTE | 2023-01-30 17:29 | XACV_ITS ---
Exam Room: [facility] Ht: 178 cm Wt: 92 kg BSA: 2.15 m2 Gender: Male : 1940 Any Known Allergies: No known allergies Exam Priority: Routine Indication(s): - Acute anterior wall CO Procedure(s): Procedure Description: Diagnostic procedure Procedure Description: PCI procedure Procedure Description: Drug Eluting Coronary Stent Procedure Description: PTCA Procedure Description: Miscellaneous Procedure Description: ACT Procedure Description: Coronary Angiography Diagnostic Cath Status: Emergency Diagnostic Findings * Left Main has no significant disease. * Right Coronary Artery has diffuse moderate luminal irregularities. * Proximal Left Anterior Descending: total thormbotic occlusion, TORI: 0 flow. This is culprit vessel for ST elevation CO. * Proximal Circumflex: significant 80% stenosis, TORI: 3 flow. * First Obtuse Marginal Branch Segment: significant 80% stenosis, TORI: 3 flow. * Coronary angiography shows right dominance. PCI Status: Emergency PCI Indication: Immediate PCI for STEMI Interventional Findings * Procedure detail: We engaged left main artery with XB 3.5 guide catheter. IV heparin was administered to maintain anticoagulation. We predilated totally occluded proximal LAD with a 2.5 x 12 mm semicompliant balloon. Patient was very agitated with chest pain and with sedation got confused. He was also having labored breathing. He attempted to sit up and it was impossible to proceed further. ER team was called to intubate the patient given breathing difficulty and proceeding safely with intervention. After intervention, vessel was again dilated. We then placed 3.0 x 34 mm resolute [place] drug-eluting stent in the proximal vessel. There was difficulty advancing it and guide liner was used for that. At this time final angiogram was performed. There was slow flow however patient was hemodynamically stable and flow was noted till end of vessel. Guidewire and guide catheter were removed. Decision was made to stage intervention of left circumflex artery/OM in 2-3 days. Patient left the Director Process Engineering in a stable condition.. * Proximal Left Anterior Descendin% stenosis treated with a AB TREK 2.50X12 RX BALLOON, AB TREK 2.50X12 RX BALLOON, and MDT R DAILY 3.0X34 VAIBHAV. 0% residual stenosis, TORI: 3 flow. Conclusions 1. 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 Severe left circumflex artery/OM stenosis. We will stage intervention 2 to 3 days. 2. Patient was intubated during the procedure. 3. Proximal Left Anterior Descending was treated with a Balloon, Balloon, and Drug Eluting Stent. Recommendations * Dual antiplatelet therapy with aspirin and plavix for at least 1 year. * High intensity statin therapy. * Transfer to ICU. * We will consult medicine team for vent managment. * Depending on patient's clinical progress, staged PCI of Left circumflex artery/OM in 2-3 days. * Ordering echocardiogram. Interventional RX Recommendation: PCI w/o planned CABG Diagnostic RX Recommendation: PCI w/o planned CABG Anticoagulation: Heparin Pressures Phase:Rest AO : 164 / 108 ( 132 ) @ 1:32:00 PM 102 / 71 ( 87 ) @ 1:32:00 PM 151 / 85 ( 112 ) @ 1:32:01 PM 151 / 86 ( 112 ) @ 1:32:01 PM 137 / 105 ( 120 ) @ 6:52:00 PM LV : 159 / -2 / 26 @ 1:32:01 PM 157 / -1 / 27 @ 1:32:01 PM Valves Phase:DefaultPhase AV : 5.0 @ 6:32:01 PM 5.0 @ 6:32:01 PM AV Mean Gradient: 16.0 @ 6:32:01 PM 16.0 @ 6:32:01 PM Clinical Evaluation EBL: 5mL-10mL Procedural Details Procedure Consent Obtained. Current Diagnosis : STEMI. Pre-Procedure Time Out. Identified patient by full name and date of as verbalized by the patient/guarantor. Does the consent match the physician's order: N/A Emergent; Informed Consent not obtained due to time critical life threat. Accurate & Complete Informed Consent: N/A Emergent; Informed Consent not obtained due to time critical life threat. Inpatient/Outpatient History & Physical on Chart: N/A Emergent; Informed Consent not obtained due to time critical life threat. If H&P is completed, is and addenduem needed: N/A Emergent; Informed Consent not obtained due to time critical life threat; If yes, is the addendum complete: N/A Emergent; Informed Consent not obtained due to time critical life threat. Visualize and Verify Site with Patient/Guarantor: N/A. Relevant Radiology Images available: N/A Emergent; Informed Consent not obtained due to time critical life threat. The risks, benefits, and alternatives of sedation and/or procedure were discussed by physician. The patient agrees to continue. Procedure started. [facility] Clinical Fraility Score: 3: Managing Well. Director Process Engineering Indications: ACS <= 24 hours. Chest Pain Symptom Assessment: Typical Angina Symptoms. Cardiovascular Instability: Yes, if yes, Persistant Ischemic Symptoms. Correct patient, site and procedure confirmed by cath team. Current diagnosis: STEMI. PERRLA. Strong, equal hand device test engineer bilaterally. Lungs clear x 5 lobes. IV Site on Arrival: 18 gauge in the right anticubital infiltrated on arrival to the lab head. IV Site on Arrival: 20 gauge in the left anticubital. IV Fluids: 0.9% NaCl at KVO. 0 mL infused prior to lab head. Pre Procedural Pulses: bilateral radial was 3+. Oxygen started at 2liters/min via nasal canula. right groin was prepped with chloroprep then draped in the usual sterile fashion. right radial was prepped with chloroprep then draped in the usual sterile fashion. Baseline sample Acquired. HR: 96 BPM. Physician notified. Quesada cath in place on arrival to the lab head draining clear, yellow urine. Patient's family unavailable. Equipment: 6F - Radial. Cardiac Cath Pack. ACIST Manifold Kit Model BT 2000. Heparinized Saline (2 units/mL), 1000 mL bag. Physician arrived. Physician scrubbed in. Immediate Pre-Procedure Time Out. Correct Patient: N/A Emergent; Informed Consent not obtained due to time critical life threat; Correct Procedure: N/A Emergent; Informed Consent not obtained due to time critical life threat; Correct Site: N/A Emergent; Informed Consent not obtained due to time critical life threat; Correct Patient Position: N/A Emergent; Informed Consent not obtained due to time critical life threat; Correct Supplies: N/A Emergent; Informed Consent not obtained due to time critical life threat; Dried Flammable Prep: N/A Emergent; Informed Consent not obtained due to time critical life threat; Blood Products Available: N/A Emergent; Informed Consent not obtained due to time critical life threat;. Lidocaine 1% infiltrated to the right radial. Arterial access obtained. 6 croatian XB 3.5 guide catheter was inserted over the exchange J wire. Runthrough guidewire was advanced through the guide catheter to lesion in the prox LAD. Runthrough guidewire out. Exchange J wire in. Exchange J wire out. Runthrough guidewire was advanced through the guide catheter to lesion in the prox LAD. Inflation number : 1 A AB TREK 2.50X12 RX BALLOON was prepped and advanced across the Prox LAD , then inflated to 12 LUH for 0:07 seconds. Inflation number: 2 The AB TREK 2.50X12 RX BALLOON was reinflated across the Prox LAD, to 12 LUH for 0:10 seconds. Anesthesia called to assist with sedation as the patient is aggressive and cannot lie flat and is in pain. [place] 3.0 x 34 stent in, unable to cross, removed intact. ER physician called to intubate. ER doc here with RECEIVING ASSOCIATE. RSI completed. 8.0 ETT placed. 20cm at the teeth. Anesthesia here. See Anesthesia record for sedation and hemodynamics. Inflation number : 3 A AB TREK 2.50X12 RX BALLOON was prepped and advanced across the Prox LAD , then inflated to 12 LUH for 0:15 seconds. Inflation number: 4 The AB TREK 2.50X12 RX BALLOON was reinflated across the Prox LAD, to 12 LUH for 0:12 seconds. Inflation number: 5 The AB TREK 2.50X12 RX BALLOON was reinflated across the Prox LAD, to 12 LUH for 0:15 seconds. Balloon out. Guideliner in. Inflation Number : 6 A MDT R DAILY 3.0X34 VAIBHAV -Lot Number# [id number] was prepped and advanced across the Prox LAD. The stent was deployed at 12 LUH for 0:27 seconds. Exp. 2024-01-03. Stent balloon out over wire. Guideliner out. Results checked. PCI Indication : Immediate PCI for STEMI. Wire out. Guide catheter out over the exchange J wire. A 5 croatian JR4 catheter in over the exchange J wire. Multiple views taken of right coronary artery. Catheter redirected to the LV. EDP Sample taken: LV 159/-3,26; HR: 100 BPM; SpO2: 99%. Pullback taken: LV 157/-2,27; AO 151/85(112); Mean: 16mmHg, Peak to Peak: 5mmHg, SEP: 9sec/min; HR: 100 BPM; SpO2: 99%. Catheter removed over the exchange J wire. Physician scrubbed out. ACT drawn. Results 335 seconds. Therapeutic limits - pre-heparin administration 90-150 seconds and monitoring heparin during a vascular procedure >250 seconds. A TR Band was successful obtaining hemostatsis at the Right Radial artery insertion site. TR band placed. Hemostasis obtained. Post Procedure: Pulses reassessed and unchanged. PERRLA. Strong, equal hand device test engineer bilaterally. No VTE prophylaxis required. Medication's Wasted: Lidocaine 1% = 1 mL. Medication's Wasted: Nitro = 49.8 mg. Medication's Wasted: Heparin = 1000 units. Total IV fluids: 72 mL. PCI Indication: STEMI. Post-op diagnosis: PCI of the Proximal LAD. Complications: none. Estimated blood loss: 5mL-10mL. Responsiveness - Patient intubated and sedated per anesthesia. Airway - Intubated. See anesthesia record. Circulation: W/N/L, pulses unchanged. Nausea/Vomiting: No. Procedure completed. Patient transferred by bed to ICU. Vital chart was stopped. Access Site Site: Right Radial artery Sheath Size: 6 Fr Hemostasis Method: TR Band Hemostasis Success: Successful Procedure Medications Start: 5:47 PM Stop: 5:47 PM Medication: Versed Amount: 1 mg Route: I.V. Start: 5:47 PM Stop: 5:47 PM Medication: Fentanyl Amount: 50 mcg Route: I.V. Start: 5:47 PM Stop: 5:47 PM Medication: Nitrogylcerin Amount: 200 mcg Route: I.A. Start: 5:55 PM Stop: 5:55 PM Medication: Versed Amount: 1 mg Route: I.V. Start: 5:55 PM Stop: 5:55 PM Medication: Fentanyl Amount: 25 mcg Route: I.V. Start: 6:12 PM Stop: 6:12 PM Medication: Heparin Amount: 2000 units Route: I.V. I, the attending physician, have reviewed and verified all procedure medications. Yes, all medications given per verbal order Report Signatures Finalized by Rusty Newman MD on 01/31/2023 11:40 AM
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
[2023-01-30 17:34] LABS: INR 0.94 (0.8-1.2)
[2023-01-30 17:35] LABS: Partial Thromboplastin Time 29.3 SECONDS (23.9-36.7)
--- NOTE | 2023-01-30 17:41 | PC.NURSE ---
pt went to catheter finisher and inspector @1746. pt was given 40mg lasix, 8mg morphine, 4000 units heparin, 600mg plavix, 325mg ASA, 4mg zofran, nitro drip started @10mcg/hr titrated to 25mcg/hr upon leaving for catheter finisher and inspector. bilateral 18G IVs, 16 german tyler placed, 2L of oxygen on pt 96% sat, documentation sent with catheter finisher and inspector, Huy. pt was placed in gown, bilateral groin & R wrist shaved.
[2023-01-30 17:43] LABS: Alanine Aminotransferase 12 U/L (0-41); Albumin Level 4.9 g/dL (3.5-5.2); Alkaline Phosphatase 121 U/L (40-130); Aspartate Amino Transferase 17 U/L (0-40); Blood Urea Nitrogen 12 mg/dL (8-23); Calcium 9.9 mg/dL (8.5-10.5); Carbon Dioxide 25 mmol/L (22-29); Chloride 99 mmol/L (98-107); Globulin 2.6 g/dL (1.3-4.6); Glucose 135 mg/dL (65-115); Osmolality Calculated 286 mOsm/kg (285-295); Sodium 137 mmol/L (136-145); Total Protein 7.5 g/dL (6.6-8.7)
[2023-01-30 17:47] LABS: Troponin(5th) Baseline 48 ng/L (0-15)
--- NOTE | 2023-01-30 18:17 | PM.CCN ---
Critical Care Event Note Was called by Dr. Mccloud requesting intubation on this patient. Had seen the patient earlier in the ER patient was an anterior STEMI despite sedation he was thrashing around there were concerned about losing access for his heart catheterization procedure is not yet complete. Patient intubated without complications see notes below. Anesthesia arrived and will manage sedation and ventilation Dr. Mccloud's continue care of the patient in the Supply And Distribution Manager. Critical Care Time Code activated: No Critical Care Time (min): 0 Procedures Intubation Time out performed: Yes Sedative: etomidate Mg given: 20 Mg given: 100 Laryngoscope: Kings ET tube size: 8 ET tube uncuffed: No Tube secured depth (cm): 22 Tube secured location: teeth Tube placement confirmation: visualized tube passing through cords, equal breath sounds bilaterally, no breath sounds over epigastrium, confirmation by capnometry and color change noted Patient tolerated procedure: well Intubation complications: none Coding Level of Care Code Acute Code for [facility]
--- NOTE | 2023-01-30 18:40 | PM.MISC ---
Miscellaneous Note Purpose of Documentation: Brief procedure and event note Note: Coronary angiogram demonstrated total thrombotic occlusion of proximal LAD. He underwent successful revascularization with 1 stent. During procedure, patient became increasingly agitated trying to sit up and move all extremities increasing risk of coronary complications. His breathing was also noted to be labored. ER team was called to help with intubation. This allowed us also to complete the procedure. He has residual severe stenosis in LCx/OM. This will be staged at a later time. LVEDP was 25 mmHg. We will continue dual antiplatelet therapy with aspirin and Plavix. We will consult medicine team for management of ventilator and medical issues.
[2023-01-30] MEDS: propofol 1,000 MG/100 ML INJ 2.75 MG IV (18:45)
--- NOTE | 2023-01-30 19:05 | USCV_ITS ---
Star John Age: 82 Gender: M : 1940 Exam Date: 01/30/2023 23:45 Ordering Phys: Rusty Newman M.D ([email or web address]) Technologist: PAULO Exam Location: [facility] [place] Indication: s/p cardiac cath. Patient is unresponsive, but struggling, on ventilator in ICU-9 BP: 112 / 77 HR: 56 Rhythm: Sinus Technical Quality: Technically difficult study MEASUREMENTS (Male / Female) Normal Values 2D ECHO LV Diastolic Diameter PLAX 3.9 cm 4.2 - 5.9 / 3.9 - 5.3 cm LV Systolic Diameter PLAX 2.3 cm IVS Diastolic Thickness 2.0 cm 0.6 - 1.0 / 0.6 - 0.9 cm IVS Systolic Thickness 1.9 cm LVPW Diastolic Thickness 1.5 cm 0.6 - 1.0 / 0.6 - 0.9 cm LVPW Systolic Thickness 1.7 cm LVOT Diameter 1.9 cm LV Ejection Fraction 2D Teich 71.4 % LV Ejection Fraction MOD 2C 44.3 % LV Ejection Fraction 2C AL 47.5 % LA Diameter 2.6 cm LA Width 4.0 cm LA Height 5.0 cm RA Width 4.3 cm RA Height 4.1 cm Aorta at Sinotubular Diameter 2.9 cm IVC Diameter 2.1 cm M-MODE Aortic Annulus Diameter 3.5 cm LA Ao Ratio MM 0.8 DOPPLER AV Peak Velocity 103.0 cm/s LVOT Peak Velocity 86.0 cm/s AV Area Cont Eq vti 2.2 cm squared AV Area Cont Eq pk 2.4 cm squared MV Area PHT 3.3 cm squared Mitral E to A Ratio 1.2 MV E' Velocity 38.5 cm/s Mitral E to MV E' Ratio 10.6 Mitral E to LV E' Lateral Ratio 13.9 Mitral E to LV E' Septal Ratio 8.6 TV Peak E Velocity 28.0 cm/s PV Peak Velocity 73.0 cm/s RV Acceleration Time 0.1 s RV Ejection Time 0.3 s RV AcT/ET 0.6 FINDINGS Left Ventricle Technically very limited quality echocardiogram because of poor ultrasonic windows. LV systolic function is severely reduced with EF of 20 to 25%. Accurate assessment of regional wall motion abnormalities are not possible because of limited visualization but grossly apical and anterior michel appear severely hypokinetic to akinetic. Right Ventricle Normal in size and function Right Atrium Normal in size Left Atrium Normal in size Mitral Valve Grossly normal. Aortic Valve Structurally normal aortic valve. No significant stenosis or regurgitation. Tricuspid Valve Grossly normal Pulmonic Valve Not well-visualized Pericardium Normal Aorta Normal in size IVC Dilated CONCLUSIONS Technically very limited quality echocardiogram because of poor ultrasonic windows. LV systolic function is severely reduced with EF of 20 to 25%. Valves are grossly normal. IVC is dilated. No comparison studies available Rusty Newman MD (Electronically Signed) Final Date: 31 January 2023 08:22 S
--- NOTE | 2023-01-30 19:14 | XRR_ITS ---
PROCEDURE INFORMATION: Exam: XR Chest Exam date and time: 01/30/2023 7:33 PM Age: 82 years old Clinical indication: Device placement; Ett placement (vent status); Additional info: Et tutbe placement og tube TECHNIQUE: Imaging protocol: Radiologic exam of the chest. Views: 1 view. COMPARISON: CR XR chest 1V portable [id number] 01/30/2023 5:18 PM FINDINGS: Tubes, catheters and devices: Endotracheal tube tip is slightly above the level of the aortic arch about 5.6 cm above the felicia. Nasogastric tube tip is outside of the field of view but below the diaphragm. Lungs: There is a new left basilar opacity possibly representing infiltrate. Prominent increased lung markings are noted in the remaining lung castro particularly of the right lower lung field. Pleural spaces: Cannot exclude pleural effusions. Heart/Mediastinum: Unremarkable. No cardiomegaly. Bones/joints: Unremarkable. XR/XR chest 1V portable [id number] IMPRESSION: 1. Endotracheal tube tip is slightly above the level of the aortic arch about 5.6 cm above the felicia. Nasogastric tube tip is outside of the field of view but below the diaphragm. 2. There is a new left basilar opacity possibly representing infiltrate. Prominent increased lung markings are noted in the remaining lung castro particularly of the right lower lung field. 3. Cannot exclude pleural effusions.
--- NOTE | 2023-01-30 19:30 | ECG_ITS ---
[facility] Test Date: 2023-01-30 Pat Name: Star John Department: Room: [facility] Gender: Male [place]: : 1940 Requested By: Rusty Newman Order Number: [id number] Rolando MD: Bakari Wilson M.D. Measurements Intervals [place] Rate: 91 P: 59 MT: 154 QRS: 269 QRSD: 113 T: 56 QT: 316 QTc: 390 Interpretive Statements SINUS RHYTHM WITH FREQUENT VENTRICULAR PREMATURE COMPLEXES INDETERMINATE AXIS ANTEROSEPTAL MYOCARDIAL INFARCTION , POSSIBLY ACUTE [40+ ms Q WAVE IN V1-V4] ACUTE HI Compared to ECG 01/30/2023 16:58:45 Ventricular premature complex(es) now present Indeterminate axis now present Sinus arrhythmia no longer present Myocardial infarct finding still present Electronically Signed On 01-31-2023 21:08:46 CDT by Bakari Wilson M.D. [email or web address]/store/[id number]
[2023-01-30] MEDS: metoprolol tartrate 25 mg Tablet PO (19:53)
[2023-01-30] MEDS: atorvastatin 40 mg Tablet PO (19:53)
[2023-01-30 19:54] LABS: Troponin 5 2HR 3390 ng/L (0-15); Troponin 5 2HR Delta 3342 ABS# (0-10)
--- NOTE | 2023-01-30 20:01 | XRR_ITS ---
PROCEDURE INFORMATION: Exam: XR Chest Exam date and time: 01/30/2023 8:12 PM Age: 82 years old Clinical indication: Device placement; Ett placement (vent status); Additional info: Et tube placement TECHNIQUE: Imaging protocol: Radiologic exam of the chest. Views: 1 view. COMPARISON: CR (CHEST, ) 01/30/2023 7:33 PM and also from 1700 hours today FINDINGS: Tubes, catheters and devices: An endotracheal tube ends at the mid clavicles. Nasogastric tube enters the stomach and extends beyond the limits of the film. External pacer pads overlie the chest. Lungs: There is a persisting somewhat rounded dense opacity in the left lower lobe which is new since earlier today. Persisting bilateral streaky airspace opacities are new from earlier today. Pleural spaces: Possible small left effusion. No pneumothorax. Heart/Mediastinum: Unremarkable. No cardiomegaly. Bones/joints: Chronic cervical metallic fusion. Soft tissues: The known hiatus hernia is not clearly seen.. XR/XR chest 1V portable [id number] IMPRESSION: Persisting streaky opacities in both lungs as well as denser opacity in the left lower lobe. Consider aspiration pneumonia
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
[2023-01-30 20:10] LABS: ABG PH Result 7.37 (7.35-7.45); Arterial Blood Gas Hematocrit 48.8 % (42-52); Base Excess ABG -0.1 mmol/L (-2.0-2.0); Blood Gas Allen Test Pos; Blood Gas Sample Site Radial, left; Blood Gas Sample Type Arterial; HCO3 ABG 25.5 mmol/L (22-26); Oxygen Device VENT
--- NOTE | 2023-01-30 21:00 | PC.NURSE ---
IV fentanyl drip not infusing at 500mcg or 750 mcg. Charted in ml/h column instead of mcg/kg/min.
[2023-01-30 22:17] LABS: C Reactive Protein 43.2 mg/L (0.0-4.9)
[2023-01-30 22:24] LABS: Procalcitonin 0.05 ng/mL (0-0.5)
--- NOTE | 2023-01-30 23:06 | ECG_ITS ---
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 Measurements Intervals [place] Rate: 71 P: 31 GA: 166 QRS: 84 QRSD: 103 T: 68 QT: 365 QTc: 397 Interpretive Statements SINUS RHYTHM INDETERMINATE AXIS LOW QRS VOLTAGE [QRS DEFLECTION < 0.5/1.0 mV IN LIMB/CHEST LEADS] POSSIBLE INFERIOR MYOCARDIAL INFARCTION , PROBABLY OLD [30 ms Q WAVE IN II/aVF] ANTEROSEPTAL MYOCARDIAL INFARCTION , POSSIBLY ACUTE [40+ ms Q WAVE IN V1-V4] ACUTE MN INTERPRETATION BASED ON A DEFAULT AGE OF 40 YEARS Compared to ECG 01/30/2023 19:30:58 Low QRS voltage now present Ventricular premature complex(es) no longer present Myocardial infarct finding still present Electronically Signed On 01-31-2023 21:13:20 CDT by Bakari Wilson M.D. [email or web address].[employer]/store/[id number] cary
[2023-01-30 23:28] LABS: Troponin 5 6HR 6676 ng/L (0-15); Troponin 5 6HR Delta 6628 ng/L (0-12)
--- NOTE | 2023-01-30 23:36 | PC.NURSE ---
Notified Dr. Jack of elevations in leads v2 through v6 on most recent EKG, heart rate 40's to 70's with PVCs, Troponin of 6676 with a delta of 6628. EKG and current vital signs reviewed per MD. Order given to repeat Troponin and EKG in 3 hours.
[2023-01-31] VITALS (29 sets, daily range): BP systolic 106–148; BP diastolic 68–99; PULSE 64–84; RESP 10–37; TEMP 36.6–36.8; O2SAT 91–98
[2023-01-31] LABS: Adenovirus Not Detected (NOT DETECT); Chlamydia Pneumoniae Not Detected (NOT DETECT); Coronavirus 229E,HKU1,NL63,OC4 Not Detected (NOT DETECT); Human Metapneumovirus Not Detected (NOT DETECT); Human Rhinovirus/Enterovirus Not Detected (NOT DETECT); Influenza A Not Detected (NOT DETECT); Influenza A H1 Not Detected (NOT DETECT); Influenza A H1-2009 Not Detected (NOT DETECT); Influenza A H3 Not Detected (NOT DETECT); Influenza B Not Detected (NOT DETECT); Mycoplasma Pneumoniae Not Detected (NOT DETECT); Parainfluenza Virus Type 1 Not Detected (NOT DETECT); Parainfluenza Virus Type 2 Not Detected (NOT DETECT); Parainfluenza Virus Type 3 Not Detected (NOT DETECT); Parainfluenza Virus Type 4 Not Detected (NOT DETECT); Respiratory Syncytial Virus A Not Detected (NOT DETECT); Respiratory Syncytial Virus B Not Detected (NOT DETECT); SARS-COV-2 Not Detected (NOT DETECT)
--- NOTE | 2023-01-31 00:15 | PC.NURSE ---
01/30/23 2100 2mL air removed from TR band. No bleeding or hematoma noted. 2115 2mL air removed from TR band. No bleeding or hematoma noted. 2135 2mL air removed from TR band. No bleeding or hematoma noted. 2145 2mL air removed from TR band. No bleeding or hematoma noted. 2200 2mL air removed from TR band. No bleeding or hematoma noted. 2210 2mL air removed from TR band. No bleeding or hematoma noted. 2225 2mL air removed from TR band. No bleeding or hematoma noted. 2235 1mL air removed from TR band. No bleeding or hematoma noted. 2300 No bleeding or hematoma noted, right radial pulse 3+. 2330 -- No bleeding or hematoma noted, TR band removed from right wrist. Band-aid applied. 0000 -- No bleeding or hematoma noted to right wrist heart cath site.
--- NOTE | 2023-01-31 02:00 | ECG_ITS ---
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 Measurements Intervals [place] Rate: 69 P: 39 DE: 171 QRS: 63 QRSD: 101 T: 69 QT: 372 QTc: 399 Interpretive Statements SINUS RHYTHM WITH OCCASIONAL VENTRICULAR PREMATURE COMPLEXES LOW QRS VOLTAGE IN PRECORDIAL LEADS [QRS DEFLECTION < 1.0 mV IN CHEST LEADS] ANTEROSEPTAL MYOCARDIAL INFARCTION , OF INDETERMINATE AGE [40+ ms Q WAVE IN V1-V4] Compared to ECG 01/30/2023 23:06:30 Ventricular premature complex(es) now present Indeterminate axis no longer present Myocardial infarct finding still present Electronically Signed On 01-31-2023 21:13:30 CDT by Bakari Wilson M.D. [id number]
[2023-01-31 02:59] LABS: ABG PCO2 40.1 mmHg (35-45); ABG PH Result 7.42 (7.35-7.45); Arterial Blood Gas Hematocrit 49.6 % (42-52); Base Excess ABG 1.3 mmol/L (-2.0-2.0); Blood Gas Allen Test Pos; Blood Gas Sample Site Radial, left; Blood Gas Sample Type Arterial; Blood Gas Tidal Volume 0.45; HCO3 ABG 25.9 mmol/L (22-26); Oxygen Device VENT
[2023-01-31 03:00] LABS: Basophils % 0.3 %; Eosinophils # 0.1 10^3/uL (0.0-0.8); Eosinophils % 0.4 %; Hematocrit 46.8 % (37-53); Lymphocytes # 1.7 10^3/uL (0.8-4.8); Lymphocytes % 12.7 %; Mean Corpuscular HGB Conc 33.3 g/dL (30-55); Mean Corpuscular Hemoglobin 32.2 pg (27-33); Mean Corpuscular Volume 96.7 fl (82-101); Mean Platelet Volume 9.3 fL (7.4-10.4); Monocytes # 0.8 10^3/uL (0.2-0.9); Monocytes % 5.8 %; Neutrophils # 10.56 10^3/uL (1.8-7.7); Neutrophils % 80.5 %; Nucleated Red Blood Cells % 0 %; Platelet Count 286 10^3/cmm (157-399); Red Blood Count 4.84 10^6/uL (3.85-5.65); White Blood Count 13.11 10^3/uL (3.29-11.43)
[2023-01-31 03:25] LABS: Troponin T (5th) Once 9739 ng/L (0-15)
[2023-01-31 03:40] LABS: Alanine Aminotransferase 48 U/L (0-41); Albumin Level 4.5 g/dL (3.5-5.2); Alkaline Phosphatase 113 U/L (40-130); Blood Urea Nitrogen 13 mg/dL (8-23); Calcium 9.2 mg/dL (8.5-10.5); Carbon Dioxide 25 mmol/L (22-29); Chloride 96 mmol/L (98-107); Globulin 2.6 g/dL (1.3-4.6); Glucose 154 mg/dL (65-115); Osmolality Calculated 285 mOsm/kg (285-295); Phosphorus 3.6 mg/dL (2.5-4.5); Sodium 136 mmol/L (136-145); Total Bilirubin 1.1 mg/dL (0.15-1.2); Total Protein 7.1 g/dL (6.6-8.7)
[2023-01-31 03:41] LABS: Anion Gap 19.4 (5-19); Potassium 4.4 mmol/L (3.5-5.1)
[2023-01-31 03:42] LABS: Aspartate Amino Transferase 286 U/L (0-40); NT Pro B Type Natriuretic Pept 364 pg/mL (0-450)
[2023-01-31] MEDS: propofol 1,000 MG/100 ML INJ 5.5 MG IV (05:06)
--- NOTE | 2023-01-31 07:00 | XRR_ITS ---
PROCEDURE INFORMATION: Exam: XR Chest Exam date and time: 01/31/2023 6:59 AM Age: 82 years old Clinical indication: Shortness of breath; Prior surgery; Surgery date: 6+ months; Surgery type: Heart cath; Additional info: SOB TECHNIQUE: Imaging protocol: Radiologic exam of the chest. Views: 1 view. COMPARISON: CR (CHEST, ) 01/30/2023 8:12 PM FINDINGS: Tubes, catheters and devices: The patient is intubated. The endotracheal tube tip is seen 5.2 cm above the felicia. There is an enteric tube projecting into the abdomen. Lungs: There is mild pulmonary vascular congestion and peribronchial cuffing which has increased since the previous exam. There is right lower lung subsegmental atelectasis now seen. Pleural spaces: Unremarkable. No pleural effusion. No pneumothorax. Heart/Mediastinum: Unremarkable. No cardiomegaly. Bones/joints: Unremarkable. XR/XR chest 1V portable [id number] IMPRESSION: Mildly increased pulmonary vascular congestion.
--- NOTE | 2023-01-31 07:26 | PC.PHAR ---
Addendum entered by Amanda Rod 01/31/23 09:01: pt unable to verify medications due to being intubated-pts was at bedside and states the pt takes care of his own medications but verified what medications she knew the pt took-states he takes some things prn states the [facility] and [facility] list is what he should be taking-medications on the [facility] list zyrtec 10mg-prilosec 20mg-sildenafil 100mg-flomax 0.4mg-gabapentin 100mg and flonase the other medications entered is what the pts states the pt takes -notes are made in the pharmacy comments Original Note: faxed [place] for med list
[2023-01-31] MEDS: pantoprazole 40 mg SDV IVP (09:08)
[2023-01-31] MEDS: metoprolol tartrate 25 mg Tablet PO ×2 (09:08→17:14)
[2023-01-31] MEDS: clopidogrel 75 mg Tablet PO (09:08)
[2023-01-31] MEDS: aspirin 81 mg EC Tablet PO (09:08)
--- NOTE | 2023-01-31 10:06 | PC.NURSE ---
Approximately 0800 patient off sedation, following commands, Dr. Hutchison at bedside. extubated per RT
--- NOTE | 2023-01-31 10:46 | PM.PN ---
Subjective Subjective: This morning patient was extubated to nasal cannula Patient is doing well, postextubation blood pressure is stable, doing well on nasal cannula is at the bedside No active chest pain or shortness of breath I have asked nurse to give him aspirin and Plavix after bedside speech evaluation Vitals/I&O/Wt Last Vital Signs Temp 98.1 F 01/31/23 04:00 Pulse 73 01/31/23 10:00 Resp 25 H 01/31/23 10:00 BP 134/77 01/31/23 10:00 Pulse Ox 93 01/31/23 10:00 O2 Del Method Mechanical Ventilation 01/31/23 06:00 O2 Flow Rate 35 01/31/23 06:00 FiO2 30 01/31/23 07:57 01/30/23 01/31/23 01/31/23 22:59 06:59 14:59 Intake Total 181.449 / 181.449 90.035 / 271.484 150 / 150 Output Total 1750 / 1750 950 / 2700 Balance -1568.551 / -1568.551 -859.965 / -2428.516 150 / 150 Weight last 48 hrs Weight 91.308 kg Weight 91.626 kg Physical Exam Narrative: Awake and alert GCS 15 Nonfocal neuro exam Mild signs of fluid overload Currently on nasal cannula Able to communicate with the staff Pleasant and cooperative S1, S2 Abdomen soft GCS [address] Urinary Catheter Management: Quesada: Cath Placed During This Visit: yes Reason for Continuing Indwelling Catheter: Acute Urinary Retention or Obstruction Urinary Catheter Date of Insertion: 01/30/23 Urinary Catheter Time of Insertion: 17:27 Data 01/31/23 02:35 01/31/23 02:35 Micro: Microbiology 01/30/23 21:58 Blood Culture - Preliminary Blood SPECIMEN COLLECTED 01/30/23 21:58 Blood Culture - Preliminary Blood SPECIMEN COLLECTED A&P Assessment and plan (1) Hypertensive urgency: (2) Agitation: (3) STEMI (ST elevation myocardial infarction): (4) Acute postprocedural respiratory failure: (5) Hearing impairment: Plan Postprocedure intubation for acute hypoxic respiratory failure Patient requiring mechanical ventilation, patient was extubated successfully on 01/31 at 8:30 AM Patient was saturating well on nasal cannula Blood pressure stable Able to communicate with the staff is at the bedside STEMI status post PCI After bedside evaluation we will start aspirin Plavix No active chest pain Blood pressure is stable Incentive spirometer Hypertensive urgency: Improved Start cardiac diet We will request PT evaluation Disposition plan as per cardiology We will follow along Attestations Medical Necessity Statement*: Continue ICU management Coding Level of Care Code Critical Care >/= 30 minutes Diagnoses Hypertensive urgency I16.0 Agitation R45.1 STEMI (ST elevation myocardial infarction) I21.3 Acute postprocedural respiratory failure J95.821 Hearing impairment H91.90 Time Spent (min) 35
--- NOTE | 2023-01-31 11:46 | PM.PN ---
Subjective Subjective: Patient has been extubated. Has pleuritic chest pain Vitals/I&O/Wt Last Vital Signs Temp 98.1 F 01/31/23 04:00 Pulse 73 01/31/23 10:00 Resp 25 H 01/31/23 10:00 BP 134/77 01/31/23 10:00 Pulse Ox 93 01/31/23 10:00 O2 Del Method Mechanical Ventilation 01/31/23 06:00 O2 Flow Rate 35 01/31/23 06:00 FiO2 30 01/31/23 07:57 01/30/23 01/31/23 01/31/23 22:59 06:59 14:59 Intake Total 181.449 / 181.449 90.035 / 271.484 150 / 150 Output Total 1750 / 1750 950 / 2700 Balance -1568.551 / -1568.551 -859.965 / -2428.516 150 / 150 Weight last 48 hrs Weight 201 lb 4.8 oz Weight 202 lb Physical Exam Narrative: GENERAL: Patient is alert, awake and oriented x3. [] NECK: No jugular vein distension. [] HEENT: No cyanosis. No icterus. No pallor. [] HEART: Regular S1 and S2. No murmur, rub or gallop. [] LUNGS: Clear to auscultate bilaterally. [] CENTRAL NERVOUS SYSTEM: Grossly nonfocal. [] EXTREMITIES: Lower extremities with 1+ edema bilaterally. Pulses palpable in the lower extremities, both dorsalis pedis and posterior tibial. [] Urinary Catheter Management: Quesada: Cath Placed During This Visit: yes Reason for Continuing Indwelling Catheter: Acute Urinary Retention or Obstruction Urinary Catheter Date of Insertion: 01/30/23 Urinary Catheter Time of Insertion: 17:27 Data 01/31/23 02:35 01/31/23 02:35 Micro: Microbiology 01/30/23 21:58 Blood Culture - Preliminary Blood SPECIMEN COLLECTED 01/30/23 21:58 Blood Culture - Preliminary Blood SPECIMEN COLLECTED A&P Assessment and plan (1) STEMI (ST elevation myocardial infarction): (2) HFrEF (heart failure with reduced ejection fraction): Plan Patient had successful revascularization of prox LAD with 1 stent. LCx/OM staged PCI in 1-2 days. Continue Aspirin, plavix High intensity statin therapy ECHO shows severely reduced LV systolic function. We will order lifevest. Continue metoprolol. Will add low dose losartan Medicine team on board. Appreciate Recs Attestations Medical Necessity Statement*: Care expected to cross 2 midnights Coding Level of Care Code Acute Code for g Fwd Diagnoses STEMI (ST elevation myocardial infarction) I21.3 HFrEF (heart failure with reduced ejection fraction) I50.20
[2023-01-31] MEDS: tamsulosin 0.4 mg Capsule PO (17:14)
--- NOTE | 2023-01-31 17:58 | PC.NURSE ---
Wasted 39.3 mls Fentanyl drip
--- NOTE | 2023-01-31 18:43 | PC.NURSE ---
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 Lawrence
--- NOTE | 2023-01-31 18:44 | PC.NURSE ---
Patient refused foly removal requesting it be taken out in AM. got out of bed x2 today, tolerated well
[2023-01-31] MEDS: temazepam 15 mg Capsule PO (19:52)
[2023-01-31] MEDS: morphine 4 mg/mL SDV 1 mL 1 MG IVP (19:53)
[2023-01-31] MEDS: atorvastatin 40 mg Tablet PO (19:53)
--- NOTE | 2023-01-31 19:57 | PC.NURSE ---
Notified Dr. Burgess that patient is complaining of generalized discomfort to chest and rib area that is worth with a deep breath and when coughing. Order given for Morphine 1mg IV every 4 hours prn pain.
[2023-02-01] VITALS (27 sets, daily range): BP systolic 84–130; BP diastolic 45–87; PULSE 71–101; RESP 0–27; TEMP 36.9; O2SAT 89–97
[2023-02-01] MEDS: morphine 4 mg/mL SDV 1 mL 1 MG IVP ×2 (01:28→05:19)
[2023-02-01 04:37] LABS: Basophils % 0.3 %; Eosinophils # 0.1 10^3/uL (0.0-0.8); Eosinophils % 0.3 %; Hematocrit 45.5 % (37-53); Lymphocytes # 1.5 10^3/uL (0.8-4.8); Lymphocytes % 10.1 %; Mean Corpuscular HGB Conc 33.8 g/dL (30-55); Mean Corpuscular Hemoglobin 32.6 pg (27-33); Mean Corpuscular Volume 96.4 fl (82-101); Mean Platelet Volume 9.2 fL (7.4-10.4); Monocytes % 6.4 %; Neutrophils # 12.36 10^3/uL (1.8-7.7); Neutrophils % 82.4 %; Nucleated Red Blood Cells % 0 %; Platelet Count 289 10^3/cmm (157-399); Red Blood Count 4.72 10^6/uL (3.85-5.65); Red Cell Distribution Width 12.7 % (12.1-15.1)
[2023-02-01 04:59] LABS: Alanine Aminotransferase 42 U/L (0-41); Albumin Level 3.9 g/dL (3.5-5.2); Alkaline Phosphatase 95 U/L (40-130); Anion Gap 15.2 (5-19); Aspartate Amino Transferase 174 U/L (0-40); Blood Urea Nitrogen 18 mg/dL (8-23); Calcium 9.4 mg/dL (8.5-10.5); Carbon Dioxide 28 mmol/L (22-29); Chloride 95 mmol/L (98-107); Globulin 3.3 g/dL (1.3-4.6); Glucose 126 mg/dL (65-115); Osmolality Calculated 281 mOsm/kg (285-295); Phosphorus 2.7 mg/dL (2.5-4.5); Potassium 4.2 mmol/L (3.5-5.1); Sodium 134 mmol/L (136-145); Total Bilirubin 2.4 mg/dL (0.15-1.2); Total Protein 7.2 g/dL (6.6-8.7)
[2023-02-01 05:04] LABS: NT Pro B Type Natriuretic Pept 4542 pg/mL (0-450)
[2023-02-01] MEDS: FUROsemide 10 mg/mL SDV 4mL 40 MG IVP (08:24)
[2023-02-01] MEDS: clopidogrel 75 mg Tablet PO (08:25)
[2023-02-01] MEDS: metoprolol tartrate 25 mg Tablet PO ×2 (08:25→17:40)
[2023-02-01] MEDS: pantoprazole 40 mg SDV IVP (08:26)
[2023-02-01] MEDS: aspirin 81 mg EC Tablet PO (08:26)
--- NOTE | 2023-02-01 08:40 | PM.PN ---
Subjective Subjective: Patient is stable. Chest pain with coughing. Vitals/I&O/Wt Last Vital Signs Temp 98.4 F 02/01/23 04:00 Pulse 85 02/01/23 08:00 Resp 16 02/01/23 08:00 BP 125/82 02/01/23 08:00 Pulse Ox 93 02/01/23 08:00 O2 Del Method Nasal Cannula 02/01/23 06:00 O2 Flow Rate 2 02/01/23 06:00 FiO2 30 01/31/23 07:57 01/31/23 02/01/23 02/01/23 22:59 06:59 14:59 Intake Total 650 / 854.916 100 / 100 Output Total 450 / 450 350 / 800 Balance 200 / 404.916 -350 / 54.916 100 / 100 Weight last 48 hrs Weight 204 lb 9.6 oz Weight 201 lb 4.8 oz Weight 202 lb Physical Exam Narrative: GENERAL: Patient is alert, awake and oriented x3. [] NECK: No jugular vein distension. [] HEENT: No cyanosis. No icterus. No pallor. [] HEART: Regular S1 and S2. No murmur, rub or gallop. [] LUNGS: Mild crackles bilaterally CENTRAL NERVOUS SYSTEM: Grossly nonfocal. [] EXTREMITIES: Lower extremities with 1+ edema bilaterally. Urinary Catheter Management: Quesada: Cath Placed During This Visit: yes Reason for Continuing Indwelling Catheter: Accurate Measurement of Urinary Output in Critically Ill Patients Urinary Catheter Date of Insertion: 01/30/23 Urinary Catheter Time of Insertion: 17:27 Data 02/01/23 04:27 02/01/23 04:27 Micro: Microbiology 01/30/23 21:58 Blood Culture - Preliminary Blood NEGATIVE TO DATE 01/30/23 21:58 Blood Culture - Preliminary Blood NEGATIVE TO DATE 01/30/23 21:55 Gram Stain - Final Sputum - Endotracheal Tube Aspirate A&P Assessment and plan (1) STEMI (ST elevation myocardial infarction): (2) HFrEF (heart failure with reduced ejection fraction): Plan Patient had successful revascularization of prox LAD with 1 stent. LCx/OM staged PCI it tomorrow. Continue Aspirin, plavix High intensity statin therapy Lifevest ordered. Continue metoprolol. Will add low dose losartan Patient has crackles today. We will diurese him, in preparation of his procedure tomorrow. Medicine team on board. Appreciate Recs Attestations Medical Necessity Statement*: Care expected to cross 2 midnights. Coding Level of Care Code Acute Code for [facility] [place] Diagnoses STEMI (ST elevation myocardial infarction) I21.3 HFrEF (heart failure with reduced ejection fraction) I50.20
--- NOTE | 2023-02-01 10:11 | P.PN_ITS ---
Subjective Subjective: This morning patient is endorsing feeling better He received a dose of Lasix for his CHF exacerbation LifeVest has been requested Going for PCI tomorrow Vitals/I&O/Wt Last Vital Signs Temp 98.4 F 02/01/23 04:00 Pulse 85 02/01/23 08:00 Resp 16 02/01/23 08:00 BP 125/82 02/01/23 08:00 Pulse Ox 93 02/01/23 08:00 O2 Del Method Nasal Cannula 02/01/23 06:00 O2 Flow Rate 2 02/01/23 06:00 FiO2 30 01/31/23 07:57 01/31/23 02/01/23 02/01/23 22:59 06:59 14:59 Intake Total 650 / 854.916 100 / 100 Output Total 450 / 450 350 / 800 Balance 200 / 404.916 -350 / 54.916 100 / 100 Weight last 48 hrs Weight 92.805 kg Weight 91.308 kg Weight 91.626 kg Physical Exam Narrative: Awake and alert Crackles positive Currently on 2 L of oxygen Lower extremity no significant edema Quesada catheter in place GCS 15 Abdomen soft S1, S2 Urinary Catheter Management: Quesada: Cath Placed During This Visit: yes Reason for Continuing Indwelling Catheter: Accurate Measurement of Urinary Output in Critically Ill Patients Urinary Catheter Date of Insertion: 01/30/23 Urinary Catheter Time of Insertion: 17:27 Data 02/01/23 04:27 02/01/23 04:27 Micro: Microbiology 01/30/23 21:58 Blood Culture - Preliminary Blood NEGATIVE TO DATE 01/30/23 21:58 Blood Culture - Preliminary Blood NEGATIVE TO DATE 01/30/23 21:55 Gram Stain - Final Sputum - Endotracheal Tube Aspirate A&P Assessment and plan (1) HFrEF (heart failure with reduced ejection fraction): (2) Acute postprocedural respiratory failure: (3) Hypertensive urgency: (4) Agitation: (5) STEMI (ST elevation myocardial infarction): (6) Hearing impairment: Plan Plan for staged PCI tomorrow Postextubation patient is requiring 2 L Which is new requirement Will need home oxygen evaluation before discharge LifeVest has been requested for reduced EF CHF exacerbation Given extra dose of Lasix today Remove Quesada catheter N.p.o. after midnight Continue aspirin and Plavix Full code Cardiac diet PT evaluation Out of bed to [facility] [place] Medical Necessity Statement*: PCI tomorrow Diagnoses HFrEF (heart failure with reduced ejection fraction) I50.20 Acute postprocedural respiratory failure J95.821 Hypertensive urgency I16.0 Agitation R45.1 STEMI (ST elevation myocardial infarction) I21.3 Hearing impairment H91.90
[2023-02-01] MEDS: tamsulosin 0.4 mg Capsule PO (17:40)
--- NOTE | 2023-02-01 18:04 | PC.NURSE ---
Patient in good spirits, cooperative with staff. No complaints
[2023-02-01] MEDS: FUROsemide 10 mg/mL SDV 2mL 20 MG IVP (19:15)
[2023-02-01] MEDS: atorvastatin 40 mg Tablet PO (20:02)
[2023-02-02] VITALS (28 sets, daily range): BP systolic 81–128; BP diastolic 47–95; PULSE 65–102; RESP 10–30; TEMP 36.4–36.6; O2SAT 88–96; BMI 29.3
[2023-02-02] MEDS: hyDROXYzine 25 mg Capsule PO (00:16)
[2023-02-02 04:48] LABS: Basophils % 0.2 %; Eosinophils # 0.1 10^3/uL (0.0-0.8); Eosinophils % 0.4 %; Hematocrit 41.9 % (37-53); Lymphocytes # 1.4 10^3/uL (0.8-4.8); Lymphocytes % 11.8 %; Mean Corpuscular HGB Conc 34.8 g/dL (30-55); Mean Corpuscular Hemoglobin 32.3 pg (27-33); Mean Corpuscular Volume 92.7 fl (82-101); Mean Platelet Volume 9.5 fL (7.4-10.4); Monocytes # 0.8 10^3/uL (0.2-0.9); Monocytes % 6.9 %; Neutrophils # 9.65 10^3/uL (1.8-7.7); Nucleated Red Blood Cells % 0 %; Platelet Count 281 10^3/cmm (157-399); Red Blood Count 4.52 10^6/uL (3.85-5.65); Red Cell Distribution Width 12.4 % (12.1-15.1); White Blood Count 12.09 10^3/uL (3.29-11.43)
[2023-02-02 05:15] LABS: Alanine Aminotransferase 29 U/L (0-41); Albumin Level 3.5 g/dL (3.5-5.2); Alkaline Phosphatase 85 U/L (40-130); Anion Gap 15.7 (5-19); Aspartate Amino Transferase 84 U/L (0-40); Blood Urea Nitrogen 26 mg/dL (8-23); Calcium 9.3 mg/dL (8.5-10.5); Carbon Dioxide 25 mmol/L (22-29); Chloride 94 mmol/L (98-107); Globulin 3.4 g/dL (1.3-4.6); Glucose 142 mg/dL (65-115); Osmolality Calculated 279 mOsm/kg (285-295); Potassium 3.7 mmol/L (3.5-5.1); Sodium 131 mmol/L (136-145); Total Bilirubin 1.8 mg/dL (0.15-1.2); Total Protein 6.9 g/dL (6.6-8.7)
[2023-02-02 05:17] LABS: NT Pro B Type Natriuretic Pept 6897 pg/mL (0-450)
--- NOTE | 2023-02-02 07:48 | PM.PN ---
Subjective Subjective: Patient underwent successful revascularization of left circumflex artery/OM 2 stents today. He is doing well. Denies complaints of chest pain. Vitals/I&O/Wt Last Vital Signs Temp 98.4 F 02/01/23 04:00 Pulse 76 02/02/23 07:00 Resp 23 H 02/02/23 07:00 BP 128/82 02/02/23 07:00 Pulse Ox 94 02/02/23 07:00 O2 Del Method Nasal Cannula 02/01/23 13:16 O2 Flow Rate 3 02/01/23 13:16 FiO2 30 01/31/23 07:57 02/01/23 02/02/23 02/02/23 22:59 06:59 14:59 Intake Total 240 / 820 Output Total 800 / 800 600 / 1400 Balance -560 / 20 -600 / -580 Weight last 48 hrs Weight 204 lb 9.6 oz Weight 204 lb 9.6 oz Physical Exam Narrative: GENERAL: Patient is alert, awake and oriented x3. [] NECK: No jugular vein distension. [] HEENT: No cyanosis. No icterus. No pallor. [] HEART: Regular S1 and S2. No murmur, rub or gallop. [] LUNGS: Mild crackles bilaterally CENTRAL NERVOUS SYSTEM: Grossly nonfocal. [] EXTREMITIES: Lower extremities with 1+ edema bilaterally. Urinary Catheter Management: Quesada: Cath Placed During This Visit: yes Reason for Continuing Indwelling Catheter: Accurate Measurement of Urinary Output in Critically Ill Patients Urinary Catheter Date of Insertion: 01/30/23 Urinary Catheter Time of Insertion: 17:27 Data 02/03/23 04:45 02/03/23 04:45 Micro: Microbiology 01/30/23 21:55 Gram Stain - Final Sputum - Endotracheal Tube Aspirate Sputum Culture - Preliminary A&P Assessment and plan (1) STEMI (ST elevation myocardial infarction): (2) HFrEF (heart failure with reduced ejection fraction): Plan Patient had successful revascularization of left circumflex artery/OM with 2 stents today. Prior LAD stent was patent. He has severely reduced LV systolic function. Awaiting LifeVest. Continue Aspirin, plavix High intensity statin therapy We will continue metoprolol. Based on blood pressures, we will add lisinopril at time of discharge. Continue diuresis during hospitalization. Medicine team on board. Appreciate Recs Likely discharge home tomorrow. Attestations Medical Necessity Statement*: Care expected to cross 2 midnights. Coding Level of Care Code Acute Code for [facility] Diagnoses STEMI (ST elevation myocardial infarction) I21.3 HFrEF (heart failure with reduced ejection fraction) I50.20
[2023-02-02] MEDS: pantoprazole 40 mg SDV IVP (08:15)
[2023-02-02] MEDS: clopidogrel 75 mg Tablet PO (08:15)
[2023-02-02] MEDS: aspirin 81 mg EC Tablet PO (08:15)
[2023-02-02] MEDS: metoprolol tartrate 25 mg Tablet PO ×2 (08:15→18:09)
--- NOTE | 2023-02-02 08:42 | XACV_ITS ---
Exam Room: 2 Ht: 178 cm Wt: 92 kg BSA: 2.15 m2 Gender: Male : 1940 Any Known Allergies: No known allergies Exam Priority: Routine Procedure(s): Procedure Description: Diagnostic procedure Procedure Description: PCI procedure Procedure Description: Drug Eluting Coronary Stent Procedure Description: Coronary Angiography Diagnostic Cath Status: Elective Diagnostic Findings * INDICATION: This is a staged PCI. For full diagnostic report, please refer to procedure note from 01/30/2023. * Left Anterior Descending has patent prior stent. * Right Coronary Artery not injected. * First Obtuse Marginal Branch Segment: significant 80-90% stenosis, TORI: 3 flow. * Left Main has no disease. * Proximal Circumflex: obstructive 70% stenosis, TORI: 3 flow. * Coronary angiography shows right dominance. PCI Status: Elective PCI Indication: Staged PCI Interventional Findings * Proximal Circumflex: 70% stenosis treated with MDT R DAILY 2.75X30 VAIBHAV. 0% residual stenosis, TORI: 3 flow. * Procedure detail:. Left main artery with XB 3.5 guide catheter. IV heparin was administered to maintain anticoagulation. 0.014 run-through guidewire was used to cross the stenosis and was put in distal OM branch. We placed 2.5 x 26 mm resolute [place] drug-eluting stent in OM branch. We then placed an overlapping 2.75 x 30 mm resolute Daily drug-eluting stent from proximal LAD circumflex into OM. At this time final angiogram was performed that showed excellent stent expansion, no residual stenosis and TORI-3 flow. Guidewire and guide catheter were removed. Patient left the Medical Physics Researcher in a stable condition. (Patient has claustrophobia and was anxious during the procedure. However tolerated the procedure well.) . * First Obtuse Marginal Branch Segment: 80% stenosis treated with a MDT R DAILY 2.5X26 VAIBHAV. 0% residual stenosis, TORI: 3 flow. Conclusions 1. 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 S/p PCI with 2 stents.. 4. Proximal Circumflex was treated with a Drug Eluting Stent. 5. First Obtuse Marginal Branch Segment was treated with a Drug Eluting Stent. Recommendations * Dual antiplatelet therapy with aspirin and plavix for atleast 1 year. * High intensity statin therapy with aspirin and plavix. * Outpatient cardiology follow up in 4 weeks. Interventional RX Recommendation: PCI w/o planned CABG Diagnostic RX Recommendation: PCI w/o planned CABG Anticoagulation: Heparin Pressures Phase:Rest AO : 94 / 61 ( 72 ) @ 12:32:00 PM 101 / 77 ( 88 ) @ 12:42:00 PM 94 / 72 ( 82 ) @ 12:46:00 PM Clinical Evaluation EBL: 5mL-10mL Procedural Details Procedure Consent Obtained. Admit Source: In Patient. Hemodynamic formulas in Rest were re-calculated based on hemoglobin value from 02/02/2023 4:32:00 AM. Pre-Procedure Time Out. Identified patient by full name and date of as verbalized by the patient/guarantor. Does the consent match the physician's order: Yes. Accurate & Complete Informed Consent: Yes. Inpatient/Outpatient History & Physical on Chart: Yes. If H&P is completed, is and addenduem needed: No; If yes, is the addendum complete: N/A. Visualize and Verify Site with Patient/Guarantor: N/A. Relevant Radiology Images available: Yes. The risks, benefits, and alternatives of sedation and/or procedure were discussed by physician. The patient agrees to continue. Procedure started. [facility] Clinical Fraility Score: 4: Vulnerable. Medical Physics Researcher Indications: ACS > 24 hours, Staged PCI. Chest Pain Symptom Assessment: Atypical Angina. Correct patient, site and procedure confirmed by cath team. Current diagnosis: ACS. PERRLA. Strong, equal hand drill press hand bilaterally. Lungs clear x 5 lobes. IV Site on Arrival: 20 gauge in the right wrist. IV Site on Arrival: 20 gauge in the left forearm. IV Fluids: 0.9% NaCl at 75ml/hr. 0 mL infused prior to animal laboratory helper. Pre Procedural Pulses: bilateral radial was 2+. Pre Procedural Pulses: left dorsalis pedis was 2+. Pre Procedural Pulses: right dorsalis pedis was 1+. Pre Procedural Pulses: bilateral posterior tibial was 2+. Oxygen started at 2liters/min via nasal canula. right radial was prepped with chloroprep then draped in the usual sterile fashion. right groin was prepped with chloroprep then draped in the usual sterile fashion. Baseline sample Acquired. HR: 90 BPM. Physician notified. Baseline sample Acquired. HR: 83 BPM. Physician arrived. Physician scrubbed in. Immediate Pre-Procedure Time Out. Correct Patient: Yes; Correct Procedure: Yes; Correct Site: Yes; Correct Patient Position: Yes; Correct Supplies: Yes; Dried Flammable Prep: Yes; Blood Products Available: No;. Lidocaine 1% infiltrated to the right radial. Arterial access obtained. 6 spanish XB 3.5 guide catheter was inserted over the wire. Angiography performed of LCS. Runthrough guidewire was advanced through the guide catheter to lesion in the OM. Guidewire advanced across lesion. Stent inserted to lesion in the OM. Inflation Number : 1 A MDT R DAILY 2.5X26 VAIBHAV -Lot Number#[id number] EXP 01-16-2024 was prepped and advanced across the 1st Ob [place]. The stent was deployed at 12 LUH for 0:17 seconds. Inflation number: 1 The stent balloon was then re-inflated across the Prox CX to 12 LUH for 0:14 seconds. Stent balloon out over wire. Stent inserted to lesion in the prox Circ. Inflation Number : 2 A MDT R DAILY 2.75X30 VAIBHAV -Lot Number#[id number] EXP 05-10-2024 was prepped and advanced across the Prox CX. The stent was deployed at 12 LUH for 0:19 seconds. Stent balloon out over wire. Results checked. Runthrough wire out. Results checked. Guide catheter out. A TR Band was successful obtaining hemostatsis at the Right Radial artery insertion site. Post Procedure: Pulses reassessed and unchanged. PERRLA. Strong, equal hand drill press hand bilaterally. No VTE prophylaxis required. Medication's Wasted: Other = Fentanyl 100mcg, Versed 2 mg. Medication's Wasted: Nitro = 49.8 mg. Total IV fluids: 25 mL. Post-op diagnosis: Severe prox circ and OM stenosis, status post PCI placement of 2 stents. Complications: None. Estimated blood loss: 5mL-10mL. Responsiveness - Normal response to verbal stimuli; alert and oriented, PERRLA. Airway - Unaffected, no intervention required; spontaneous ventilation. Circulation: W/N/L, pulses unchanged. Nausea/Vomiting: No. Medication's Wasted: Heparin = 2000 unit. Procedure completed. Patient transferred by bed to ICU. Vital chart was stopped. Access Site Site: Right Radial artery Sheath Size: 6 Fr Hemostasis Method: TR Band Hemostasis Success: Successful Procedure Medications Start: 11:29 AM Stop: 11:29 AM Medication: Nitrogylcerin Amount: 200 mcg Route: I.A. Start: 11:33 AM Stop: 11:33 AM Medication: Heparin Amount: 8000 units Route: I.V. Start: 11:48 AM Stop: 11:48 AM Medication: Heparin Amount: 1000 units Route: I.V. I, the attending physician, have reviewed and verified all procedure medications. Yes, all medications given per verbal order History/Risk Factors Hypertension: No Dyslipidemia: No Peripheral Arterial Disease (PAD): No Myocardial Infarction (GA): Yes Obesity: No Renal Disease: No Prior Interventions PCI: Yes CABG: No Valve Surgery: No Date of PCI: 01/30/2023 Report Signatures Finalized by Rusty Newman MD on 02/04/2023 01:05 PM
--- NOTE | 2023-02-02 10:18 | PM.PN ---
Subjective Subjective: Creatinine is 1.3 We will give another dose of Lasix Patient is going for staged PCI today Most likely will end up staying 1 more day to watch his kidney function monitor contrast-induced nephropathy We will remove Quesada catheter after his catheter today Vitals/I&O/Wt Last Vital Signs Temp 98.4 F 02/01/23 04:00 Pulse 84 02/02/23 09:00 Resp 25 H 02/02/23 09:00 BP 118/75 02/02/23 09:00 Pulse Ox 92 02/02/23 09:00 O2 Del Method Room Air 02/02/23 08:10 O2 Flow Rate 3 02/01/23 13:16 FiO2 30 01/31/23 07:57 02/01/23 02/02/23 02/02/23 22:59 06:59 14:59 Intake Total 240 / 820 0 / 0 Output Total 800 / 800 600 / 1400 Balance -560 / 20 -600 / -580 0 / 0 Weight last 48 hrs Weight 92.805 kg Weight 92.805 kg Physical Exam Narrative: No active chest pain Patient has mild signs of fluid overload however sitting up saturating well on RA Quesada catheter in place Abdomen soft S1, S2 No active chest pain Pleasant and cooperative GCS 15 Is at the bedside Urinary Catheter Management: Quesada: Cath Placed During This Visit: yes Reason for Continuing Indwelling Catheter: Accurate Measurement of Urinary Output in Critically Ill Patients Urinary Catheter Date of Insertion: 01/30/23 Urinary Catheter Time of Insertion: 17:27 Data 02/02/23 04:32 02/02/23 04:32 Micro: Microbiology 01/30/23 21:55 Gram Stain - Final Sputum - Endotracheal Tube Aspirate Sputum Culture - Preliminary A&P Assessment and plan (1) HFrEF (heart failure with reduced ejection fraction): (2) Acute postprocedural respiratory failure: (3) Hypertensive urgency: (4) Agitation: (5) STEMI (ST elevation myocardial infarction): Plan Patient most likely will stay 1 more day Monitor for contrast-induced nephropathy Staged elective PCI today We will give extra dose of Lasix today Quesada catheter could be removed after his procedure He can be monitored on CSU as well We will touch this with cardiology Continue cardiac diet after procedure Disposition plan as per cardiology Medical team will follow along Attestations Medical Necessity Statement*: Continue medical management Diagnoses HFrEF (heart failure with reduced ejection fraction) I50.20 Acute postprocedural respiratory failure J95.821 Hypertensive urgency I16.0 Agitation R45.1 STEMI (ST elevation myocardial infarction) I21.3
--- NOTE | 2023-02-02 11:00 | W.PM.OPSUD ---
Surgery/Procedure H&P Update DATE OF PROCEDURE: February 02, 2023 DATE H&P PERFORMED: 01/30/23 H&P UPDATE INFORMATION: I have reviewed H&P completed within last 30 days, I have examined patient prior to procedure and Changes to prior documentation as noted here CHANGES TO PREVIOUS DOCUMENTATION: Patient had anterior ST elevation FL on 01/30/23. He underwent PCI of LAD with 1 stent. He has severe LCx/OM stenosis. Plan for staged PCI today. PREOP DIAGNOSIS: Staged PCI of Left circumflex artery/OM PRIMARY INDICATION FOR PROCEDURE: Staged PCI of Left circumflex artery/OM PLANNED PROCEDURE: Operation Date: 02/02/23 Proposed Procedures Staged PCI of left circumflex artery PATIENT REASSESSED PRIOR TO SEDATION, WITH NO CHANGE NOTED: Yes PHYSICAL EXAM: alert, oriented x 3 and regular rate & rhythm OTHER PERTINENT EXAM FINDINGS: Mild crackles AIRWAY EVAL/ANESTHESIA PLAN: normal airway, ASA III, Local Anesthesia, Risks, benefits & alternatives of sedation and/or procedure discussed and Patient agrees to continue as planned ADDITIONAL INFORMATION: Moderate sedation
--- NOTE | 2023-02-02 12:06 | ECG_ITS ---
[facility] Test Date: 2023-02-02 Pat Name: Star John Department: Room: [facility] Gender: Male Acid Cleaner: : 1940 Requested By: Rusty Newman Order Number: [id number] Rolando MD: Rusty Newman M.D. Measurements Intervals [place] Rate: 88 P: 0 VT: 0 QRS: 148 QRSD: 149 T: -29 QT: 362 QTc: 438 Interpretive Statements ATRIAL FIBRILLATION INDETERMINATE AXIS RIGHT BUNDLE BRANCH BLOCK [120+ ms QRS DURATION, UPRIGHT V1, 40+ ms S IN I/aVL/V4/V5/V6] LEFT POSTERIOR FASCICULAR BLOCK [QRS AXIS > 109, INFERIOR Q] ANTEROSEPTAL MYOCARDIAL INFARCTION , PROBABLY RECENT [40+ ms Q WAVE IN V1-V4] Compared to ECG 01/31/2023 01:57:15 Indeterminate axis now present Sinus rhythm no longer present Ventricular premature complex(es) no longer present Myocardial infarct finding still present Electronically Signed On 02-02-2023 14:10:06 CDT by Rusty Newman M.D. [email or web address]
[2023-02-02 13:03] LABS: Partial Thromboplastin Time > 250.0 SECONDS (23.9-36.7)
--- NOTE | 2023-02-02 17:21 | PC.NURSE ---
TR Band off at 1645 today
[2023-02-02] MEDS: tamsulosin 0.4 mg Capsule PO (18:09)
[2023-02-02] MEDS: temazepam 15 mg Capsule PO (20:08)
[2023-02-02] MEDS: atorvastatin 40 mg Tablet PO (20:08)
[2023-02-03] VITALS (16 sets, daily range): BP systolic 83–114; BP diastolic 50–75; PULSE 68–80; RESP 6–25; TEMP 36.5–37.2; O2SAT 91–95
[2023-02-03 04:54] LABS: Basophils # 0.1 10^3/uL (0.0-0.1); Basophils % 0.5 %; Eosinophils # 0.2 10^3/uL (0.0-0.8); Eosinophils % 1.7 %; Hematocrit 41.4 % (37-53); Lymphocytes # 1.8 10^3/uL (0.8-4.8); Lymphocytes % 15.7 %; Mean Corpuscular HGB Conc 34.1 g/dL (30-55); Mean Corpuscular Volume 93.9 fl (82-101); Mean Platelet Volume 9.5 fL (7.4-10.4); Monocytes # 0.9 10^3/uL (0.2-0.9); Monocytes % 8.2 %; Neutrophils # 8.17 10^3/uL (1.8-7.7); Neutrophils % 73.4 %; Nucleated Red Blood Cells % 0 %; Platelet Count 319 10^3/cmm (157-399); Red Blood Count 4.41 10^6/uL (3.85-5.65); Red Cell Distribution Width 12.4 % (12.1-15.1); White Blood Count 11.14 10^3/uL (3.29-11.43)
[2023-02-03 05:15] LABS: Anion Gap 14.9 (5-19); Blood Urea Nitrogen 22 mg/dL (8-23); Calcium 9.4 mg/dL (8.5-10.5); Carbon Dioxide 27 mmol/L (22-29); Chloride 97 mmol/L (98-107); Glucose 117 mg/dL (65-115); Osmolality Calculated 284 mOsm/kg (285-295); Potassium 3.9 mmol/L (3.5-5.1); Sodium 135 mmol/L (136-145)
[2023-02-03] MEDS: aspirin 81 mg EC Tablet PO (08:51)
[2023-02-03] MEDS: clopidogrel 75 mg Tablet PO (08:51)
[2023-02-03] MEDS: metoprolol tartrate 25 mg Tablet PO (08:52)
[2023-02-03] MEDS: pantoprazole 40 mg SDV IVP (08:52)
--- NOTE | 2023-02-03 09:27 | P.DS_ITS ---
Discharge Providers Date of Admission: 01/30/23 17:56 Date of Discharge: February 03, 2023 Attending Provider at Admission: Rusty Newman M.D Attending Provider at Discharge: Andres Hutchison MD Primary Care Provider: Go Mullen MD Diagnoses at Discharge Discharge Diagnosis (1) STEMI (ST elevation myocardial infarction): Status: Inactive (2) HFrEF (heart failure with reduced ejection fraction): Status: Acute (3) Atrial fibrillation: Status: Acute Reason for Visit Reason for Visit: Chest pain Brief History: 82 year old male with no significant prior cardiac history has presented with 3 to 4 hours of severe substernal chest pain.? EKG shows acute anterior wall ST elevation [place].? Blood pressure is elevated. Patient taken emergently to cardiac Meter Setter. Hospital Course Hospital Course Patient was found to have total thrombotic occlusion of proximal LAD. Also had severe left circumflex artery/OM stenosis. He underwent successful revascularization of LAD with 1 stent. During the procedure patient became agitated and could not lay down still. His breathing was also labored. For safe performance of procedure and avoiding any complications/deterioration, patient was intubated. He stayed on ventilator overnight and was extubated next day. He did well during hospitalization. He was found to have severely reduced LV systolic function. Left circumflex artery/om underwent successful revascularization as a staged procedure 1 day prior to discharge. The day prior to discharge he was noted to have brief episodes of atrial fibrillation. He was discharged home on aspirin and Plavix. Plan for initiation of anticoagulation as outpatient if he agrees (briefly discussed with patient in hospital). He was discharged home with a LifeVest. We will repeat a limited echo to be performed in 40 days. If cardiac function does not improve, he will need defibrillator. Physical Exam Narrative: GENERAL: Patient is alert, awake and oriented x3. [] NECK: No jugular vein distension. [] HEENT: No cyanosis. No icterus. No pallor. [] HEART: Regular S1 and S2. No murmur, rub or gallop. [] LUNGS: Clear CENTRAL NERVOUS SYSTEM: Grossly nonfocal. [] EXTREMITIES: Lower extremities with 1+ edema bilaterally. 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 Laboratory Results WBC 11.14 10^3/uL (3.29-11.43) 02/03/23 04:45 RBC 4.41 10^6/uL (3.85-5.65) 02/03/23 04:45 Hgb 14.10 g/dL (11.27-16.99) 02/03/23 04:45 Hct 41.4 % (37-53) 02/03/23 04:45 MCV 93.9 fl (82-101) 02/03/23 04:45 MCH 32.0 pg (27-33) 02/03/23 04:45 MCHC 34.1 g/dL (30-55) 02/03/23 04:45 RDW 12.4 % (12.1-15.1) 02/03/23 04:45 Plt Count 319 10^3/cmm (157-399) 02/03/23 04:45 MPV 9.5 fL (7.4-10.4) 02/03/23 04:45 Neut % (Auto) 73.4 % 02/03/23 04:45 Lymph % (Auto) 15.7 % 02/03/23 04:45 [place] % (Auto) 8.2 % 02/03/23 04:45 Eos % (Auto) 1.7 % 02/03/23 04:45 Baso % (Auto) 0.5 % 02/03/23 04:45 Neut # (Auto) 8.17 10^3/uL (1.8-7.7) H 02/03/23 04:45 Lymph # (Auto) 1.8 10^3/uL (0.8-4.8) 02/03/23 04:45 [place] # (Auto) 0.9 10^3/uL (0.2-0.9) 02/03/23 04:45 Eos # (Auto) 0.2 10^3/uL (0.0-0.8) 02/03/23 04:45 Baso # (Auto) 0.1 10^3/uL (0.0-0.1) 02/03/23 04:45 Nucleated RBC % (auto) 0 % 02/03/23 04:45 Nucleated RBCs # 0.0 /100WBC 02/03/23 04:45 PT 12.80 SECONDS (12.1-14.9) 01/30/23 17:07 INR 0.94 (0.8-1.2) 01/30/23 17:07 APTT > 250.0 SECONDS (23.9-36.7) H* 02/02/23 12:16 Specimen Type Arterial 01/31/23 04:00 Sample Site Radial, left 01/31/23 04:00 ABG pH 7.42 (7.35-7.45) 01/31/23 04:00 ABG pCO2 40.1 mmHg (35-45) 01/31/23 04:00 ABG pO2 105.0 mmHg (80.0-100.0) H 01/31/23 04:00 ABG HCO3 25.9 mmol/L (22-26) 01/31/23 04:00 ABG Base Excess 1.3 mmol/L (-2.0-2.0) 01/31/23 04:00 Yadiel Test Pos 01/31/23 04:00 Hematocrit 49.6 % (42-52) 01/31/23 04:00 O2 Delivery Device Vent 01/31/23 04:00 FiO2 45.0 % 01/31/23 04:00 Tidal Volume 0.45 01/31/23 04:00 PEEP 5.0 cmH20 01/31/23 04:00 Operator Catalyst Concentration ID eduard 01/31/23 04:00 Sodium 135 mmol/L (136-145) L 02/03/23 04:45 Potassium 3.9 mmol/L (3.5-5.1) 02/03/23 04:45 Chloride 97 mmol/L (98-107) L 02/03/23 04:45 Carbon Dioxide 27 mmol/L (22-29) 02/03/23 04:45 Anion Gap 14.9 (5-19) 02/03/23 04:45 BUN 22 mg/dL (8-23) 02/03/23 04:45 Creatinine 1.3 mg/dL (0.7-1.2) H 02/03/23 04:45 GFR Calculation Not Reportable 02/03/23 04:45 Glucose 117 mg/dL (65-115) H 02/03/23 04:45 Calculated Osmolality 284 mOsm/kg (285-295) L 02/03/23 04:45 Calcium 9.4 mg/dL (8.5-10.5) 02/03/23 04:45 Phosphorus 2.7 mg/dL (2.5-4.5) 02/01/23 04:27 Magnesium 2.0 mg/dL (1.7-2.3) 02/01/23 04:27 Total Bilirubin 1.8 mg/dL (0.15-1.2) H 02/02/23 04:32 AST 84 U/L (0-40) H 02/02/23 04:32 ALT 29 U/L (0-41) 02/02/23 04:32 Alkaline Phosphatase 85 U/L (40-130) 02/02/23 04:32 Troponin T Gen 5 ng/L 9739 ng/L (0-15) H* 01/31/23 02:35 Troponin T Baseline 48 ng/L (0-15) H 01/30/23 17:07 Troponin T 120 Minute 3390 ng/L (0-15) H 01/30/23 19:12 Delta Troponin T 3342 ABS# (0-10) H* 01/30/23 19:12 Troponin T Hi Sens 6Hr 6676 ng/L (0-15) H 01/30/23 22:38 Troponin T Hi Sens 6Hr Delta 6628 ng/L (0-12) H* 01/30/23 22:38 C-Reactive Protein 43.2 mg/L (0.0-4.9) H 01/30/23 19:12 NT-Pro-B Natriuret Pep 6897 pg/mL (0-450) H 02/02/23 04:32 Total Protein 6.9 g/dL (6.6-8.7) 02/02/23 04:32 Albumin 3.5 g/dL (3.5-5.2) 02/02/23 04:32 Globulin 3.4 g/dL (1.3-4.6) 02/02/23 04:32 Procalcitonin 0.05 ng/mL (0-0.5) 01/30/23 19:12 Nasal Influ A H1 2009 PCR Not detected (NOT DETECT) 01/30/23 21:55 Adenovirus (PCR) Not detected (NOT DETECT) 01/30/23 21:55 C. pneumoniae DNA (PCR) Not detected (NOT DETECT) 01/30/23 21:55 Coronavirus 229E (PCR) Not detected (NOT DETECT) 01/30/23 21:55 Human Metapneumovir PCR Not detected (NOT DETECT) 01/30/23 21:55 Influenza A (H1) PCR Not detected (NOT DETECT) 01/30/23 21:55 Influenza A (H3) PCR Not detected (NOT DETECT) 01/30/23 21:55 Influenza Type A (PCR) Not detected (NOT DETECT) 01/30/23 21:55 Influenza Type B (PCR) Not detected (NOT DETECT) 01/30/23 21:55 M. pneumoniae (PCR) Not detected (NOT DETECT) 01/30/23 21:55 Parainfluenza 1 (PCR) Not detected (NOT DETECT) 01/30/23 21:55 Parainfluenza 2 (PCR) Not detected (NOT DETECT) 01/30/23 21:55 Parainfluenza 3 (PCR) Not detected (NOT DETECT) 01/30/23 21:55 Parainfluenza 4 (PCR) Not detected (NOT DETECT) 01/30/23 21:55 RSV Type A (PCR) Not detected (NOT DETECT) 01/30/23 21:55 RSV Type B (PCR) Not detected (NOT DETECT) 01/30/23 21:55 Entero/Rhino (PCR) Not detected (NOT DETECT) 01/30/23 21:55 SARS-CoV-2 (PCR) Not detected (NOT DETECT) 01/30/23 21:55 Vitals Last Vital Signs Temp 97.7 F 02/03/23 03:25 Pulse 69 02/03/23 05:36 Resp 9 L 02/03/23 04:00 BP 100/55 02/03/23 05:00 Pulse Ox 94 02/03/23 04:00 O2 Del Method Room Air 02/03/23 05:36 O2 Flow Rate 3 02/01/23 13:16 FiO2 30 01/31/23 07:57 Discharge Plan Discharge Patient Disposition: Home Condition: Stable Prescriptions: New atorvastatin 40 mg Tablet 40 mg PO BEDTIME Qty: 90 3RF clopidogrel 75 mg Tablet 75 mg PO DAILY Qty: 90 3RF aspirin 81 mg Tablet,Delayed Release (Dr/Ec) 81 mg PO DAILY Qty: 90 3RF metoprolol tartrate 25 mg Tablet 25 mg PO BID Qty: 120 3RF lisinopril 2.5 mg tablet 2.5 mg PO DAILY Qty: 60 2RF Lasix 20 mg tablet 20 mg PO DAILY Qty: 60 2RF Continued cholecalciferol (vitamin D3) [Vitamin D3] 50 mcg (2,000 unit) Tablet 50 mcg PO DAILY PRN (Reason: unknown) cetirizine [Zyrtec] 10 mg Tablet 10 mg PO DAILY Tylenol Arthritis Pain 650 mg Tablet Extended Release 650 mg PO Q8H PRN (Reason: Pain) tamsulosin [Flomax] 0.4 mg Capsule 0.4 mg PO QPM gabapentin 100 mg Capsule 100 mg PO TID fluticasone propionate 50 mcg/actuation [place],Suspension 2 spray INTRANASAL DAILY Rx Instructions: administer into each nostril Ventolin HFA 90 mcg/actuation HFA aerosol inhaler 1 puff inhalation Q4H PRN (Reason: Shortness Of Breath) tiotropium bromide [Spiriva with HandiHaler] 18 mcg capsule, w/inhalation device 18 mcg inhalation DAILY PRN (Reason: unknown) prednisolone acetate 1 % drops,suspension 1 drp ophthalmic (eye) TID PRN (Reason: unknown) omeprazole 20 mg Capsule,Delayed Release(Dr/Ec) 20 mg PO QAM Discontinued sildenafil 100 mg Tablet 100 mg PO Q7D PRN (Reason: Erectile Dysfunction) Discharge Orders: Discharge Order (Routine); Ordered 02/03/23 Ordered By: Rusty Newman Referrals: Tami Wolf MD [Referring] - 02/15/23 11:30 am Vivienne Rincon FNP [Nurse Practitioner] - 02/14/23 9:00 am Discharge Diet: Cardiac Discharge Activity: Limit activity as instructed Patient Instructions: Metoprolol (By mouth), Lisinopril (By mouth) (Prinivil, Zestril), Furosemide (By mouth) (Lasix), Aspirin (By mouth), Atorvastatin (By mouth), Clopidogrel (By mouth) (Plavix), Heart Attack (DC), Heart Failure (DC), Coronary Angioplasty (DC), Heart Healthy Diet (DC), Opioid Safety, Post Heart Attack Stoplight Discharge Attestations Time Spent in Discharge Care*: greater than 30 min Quality Metrics Clinical Quality Measures [ Acute Myocardial Infaction { Clinical Trial Participant: No; Contraindication to aspirin: None; Aspirin prescribed; Contraindication to statin: None; Statin prescribed; Contraindication to PCI: None; PCI performed;}] Coding Level of Care Code Acute Code for [facility] Fwd Diagnoses STEMI (ST elevation myocardial infarction) I21.3 HFrEF (heart failure with reduced ejection fraction) I50.20 Atrial fibrillation I48.91
--- NOTE | 2023-02-03 15:16 | PC.NURSE ---
Discharge instructions provided and discussed with patient and daughter. Patient became frustrated quickly with the amount of handouts. He had a hard time listening after that, Cut discussion short for his comfort Reiterated heart failure 'stoplight', mediation list and follow up appts. Daughter verbalized understanding. Pt verbalized understanding at this point and kept apologizing. Huy, with the Live vest, then arrived.
--- NOTE | 2023-02-03 16:40 | PC.NURSE ---
Life vest application and education completed by EMMANUEL Son. Pt now discharged home with daughter.
== END 2023-02-03 16:39 | disposition home health service (06) | DRG 246 ==
LOC: ER 17:18 → CCL 17:33 → ICU 17:57
PROVIDERS: Family Medicine; Admitting Provider Internal Medicine; Emergency Provider Family Medicine; PCP Family Medicine; Visit Provider Internal Medicine
PROC: 027034Z Dilation of Coronary Artery, One Artery with Drug-eluting Intraluminal Device, Percutaneous Approach (ICD-10-PCS; principal; 2023-01-30 17:30)
PROC: 027034Z Dilation of Coronary Artery, One Artery with Drug-eluting Intraluminal Device, Percutaneous Approach (ICD-10-PCS; 2023-01-30 17:30)
PROC: 027135Z Dilation of Coronary Artery, Two Arteries with Two Drug-eluting Intraluminal Devices, Percutaneous Approach (ICD-10-PCS; principal; 2023-02-02 10:00)
DX: I21.02 ST elevation (STEMI) myocardial infarction involving left anterior descending coronary artery (principal); I50.21 Acute systolic (congestive) heart failure; J95.821 Acute postprocedural respiratory failure; I48.91 Unspecified atrial fibrillation; Z87.891 Personal history of nicotine dependence; R45.1 Restlessness and agitation; N40.0 Benign prostatic hyperplasia without lower urinary tract symptoms; I16.0 Hypertensive urgency; Z87.01 Personal history of pneumonia (recurrent); Z86.16 Personal history of COVID-19; I25.10 Atherosclerotic heart disease of native coronary artery without angina pectoris
CPT/HCPCS: 31500; 36415; 36600; 51702; 71045; 80048; 80053; 82803; 83735; 83880; 84100; 84145; 84484; 85025; 85347; 85610; 85730; 86140; 87040; 87070; 87205; 87486; 87581; 87633; 92928; 93005; 93306; 93458; 94002; 94003; 94799; 96360; 96365; 96367; 96374; 96375; 96376; 97110; 97116; 97162; 97530; 99152; 99153; 99291; C1725; C1769; C1874; C1887; C1894; C9113; C9600; C9601; J0330; J1644; J1940; J2250; J2270; J2405; J2704; J3010; J3490; J7030; Q9967

== ENCOUNTER → 2023-02-10 10:45 | Outpatient (BNVA) | payer OTHER, MEDICARE, SELFPAY | PROVIDERS: PCP Family Medicine; Visit Provider Nurse Practitioner Family | DX: I50.20 Unspecified systolic (congestive) heart failure (principal); I48.91 Unspecified atrial fibrillation; I25.10 Atherosclerotic heart disease of native coronary artery without angina pectoris; Z87.891 Personal history of nicotine dependence; I25.2 Old myocardial infarction | CPT/HCPCS: 36415; 80048; 83880; 99214 ==

== ENCOUNTER 2023-02-24 10:14 | Outpatient (CLI) | payer OTHER, SELFPAY ==
[2023-02-24 11:39] LABS: Anion Gap 13.2 (5-19); Blood Urea Nitrogen 10 mg/dL (8-23); Calcium 9.9 mg/dL (8.5-10.5); Carbon Dioxide 28 mmol/L (22-29); Chloride 102 mmol/L (98-107); Glucose 101 mg/dL (65-115); NT Pro B Type Natriuretic Pept 1868 pg/mL (0-450); Osmolality Calculated 287 mOsm/kg (285-295); Potassium 4.2 mmol/L (3.5-5.1); Sodium 139 mmol/L (136-145)
== END 2023-02-24 10:15 | disposition home or self-care (01) ==
LOC: LAB 10:16
PROVIDERS: PCP Family Medicine; Visit Provider Nurse Practitioner Family
DX: I21.3 ST elevation (STEMI) myocardial infarction of unspecified site (principal); I50.20 Unspecified systolic (congestive) heart failure; I25.10 Atherosclerotic heart disease of native coronary artery without angina pectoris; I48.91 Unspecified atrial fibrillation
CPT/HCPCS: 36415; 80048; 83880

== ENCOUNTER 2023-03-13 08:28 | Outpatient (CLI) | payer OTHER, SELFPAY ==
--- NOTE | 2023-03-13 09:51 | USCV_ITS ---
Star John Age: 82 Gender: M : 1940 Exam Date: 03/13/2023 09:30 Ordering Phys: Vivienne Rincon Technologist: Radha Mcgrath Exam Location: [facility] [place] Indication: eval for ICD. prior EF <25% BP: 130 / 79 HR: 52 Rhythm: Sinus Technical Quality: Good MEASUREMENTS (Male / Female) Normal Values 2D ECHO LV Diastolic Diameter PLAX 4.6 cm 4.2 - 5.9 / 3.9 - 5.3 cm LV Systolic Diameter PLAX 2.8 cm IVS Diastolic Thickness 1.0 cm 0.6 - 1.0 / 0.6 - 0.9 cm IVS Systolic Thickness 1.5 cm LVPW Diastolic Thickness 0.6 cm 0.6 - 1.0 / 0.6 - 0.9 cm LVPW Systolic Thickness 1.6 cm LVOT Diameter 2.1 cm LV Ejection Fraction 2D Teich 71.4 % LV Ejection Fraction MOD 2C 52.9 % LV Ejection Fraction 2C AL 52.0 % LA Diameter 2.8 cm LA Width 3.1 cm LA Height 6.2 cm RA Width 3.0 cm RA Height 3.7 cm Aorta at Sinotubular Diameter 3.1 cm IVC Diameter 1.2 cm M-MODE LV Diastolic Diameter MM 3.9 cm 4.2 - 5.9 / 3.9 - 5.3 cm LV Systolic Diameter MM 2.6 cm LV Ejection Fraction MM Teich 61.5 % Aortic Annulus Diameter 3.6 cm LA Ao Ratio MM 0.8 MV E Point Septal Separation 1.0 cm FINDINGS Left Ventricle Right Ventricle Right Atrium Left Atrium Mitral Valve Aortic Valve Tricuspid Valve Pulmonic Valve Pericardium Aorta IVC CONCLUSIONS This is a limited echocardiogram performed to assess LV systolic function. LV systolic function is mildly reduced with EF of 45 to 50%. Moderate to severe hypokinesis of apical wall. Compared to prior echocardiogram from 01/30/2023, LV systolic function has significantly improved and EF has increased from 20-25% to 45-50% now. Rusty Newman MD (Electronically Signed) Final Date: 13 March 2023 17:30 S
== END 2023-03-13 08:29 | disposition home or self-care (01) ==
LOC: RAD 08:28
PROVIDERS: PCP Family Medicine; Visit Provider Nurse Practitioner Family
DX: I50.20 Unspecified systolic (congestive) heart failure (principal); I21.3 ST elevation (STEMI) myocardial infarction of unspecified site
CPT/HCPCS: 93308

== ENCOUNTER 2023-05-09 18:01 | Emergency (ER) | payer OTHER, SELFPAY ==
[2023-05-09 18:05] VITALS: BP 136/78; PULSE 52; RESP 18; TEMP 36.6; O2SAT 98; BMI 25.8
--- NOTE | 2023-05-09 18:07 | ECG_ITS ---
[facility] Test Date: 2023-05-09 Pat Name: Star John Department: Room: Gender: Male University Administrator: : 1940 Requested By: Hai Lopez Order Number: [id number] Rolando MD: Bakari Wilson M.D. Measurements Intervals [place] Rate: 52 P: 30 OK: 196 QRS: 14 QRSD: 101 T: 89 QT: 396 QTc: 370 Interpretive Statements SINUS BRADYCARDIA LOW QRS VOLTAGE IN PRECORDIAL LEADS [QRS DEFLECTION < 1.0 mV IN CHEST LEADS] INCOMPLETE RIGHT BUNDLE BRANCH BLOCK [90+ ms QRS DURATION, TERMINAL R IN V1/V2, 40+ ms S IN I/aVL/V4/V5/V6] ANTEROSEPTAL MYOCARDIAL INFARCTION , PROBABLY RECENT [40+ ms Q WAVE IN V1-V4] ACUTE [place] Compared to ECG 02/02/2023 12:06:06 Low QRS voltage now present Incomplete right bundle-branch block now present.Atrial fibrillation no longer present Indeterminate axis no longer present.Right bundle-branch block no longer present Left posterior fascicular block no longer present Myocardial infarct finding still present Electronically Signed On 05-09-2023 21:36:17 RN SURGICAL PCU by Bakari Wilson M.D. [id number] f
--- NOTE | 2023-05-09 18:12 | XRR_ITS ---
PROCEDURE INFORMATION: Exam: XR Chest Exam date and time: 05/09/2023 6:25 PM Age: 82 years old Clinical indication: Pain; Chest pressure; Prior surgery; Surgery date: 1-6 months; Surgery type: Cardiac stents; Additional info: Cp TECHNIQUE: Imaging protocol: Radiologic exam of the chest. Views: 1 view. COMPARISON: CR XR chest 1V portable [id number] 01/31/2023 6:59 AM FINDINGS: Lungs: Unremarkable. No consolidation. Pleural spaces: Unremarkable. No pleural effusion. No pneumothorax. Heart/Mediastinum: Unremarkable. No cardiomegaly. Bones/joints: Unremarkable. XR/XR chest 1V portable [id number] IMPRESSION: No acute findings.
--- NOTE | 2023-05-09 18:12 | ECG_ITS ---
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 Measurements Intervals [place] Rate: 50 P: 14 MT: 172 QRS: 6 QRSD: 101 T: 98 QT: 405 QTc: 370 Interpretive Statements SINUS BRADYCARDIA INDETERMINATE AXIS LOW QRS VOLTAGE IN PRECORDIAL LEADS [QRS DEFLECTION < 1.0 mV IN CHEST LEADS] INCOMPLETE RIGHT BUNDLE BRANCH BLOCK [90+ ms QRS DURATION, TERMINAL R IN V1/V2, 40+ ms S IN I/aVL/V4/V5/V6] ANTEROSEPTAL MYOCARDIAL INFARCTION , PROBABLY RECENT [40+ ms Q WAVE IN V1-V4] ACUTE [place] Compared to ECG 05/09/2023 18:07:33 Indeterminate axis now present Myocardial infarct finding still present Electronically Signed On 05-09-2023 21:36:22 CEO & CO FOUNDER by Bakari Wilson M.D. [id number] cary
--- NOTE | 2023-05-09 18:24 | PC.NURSE ---
Pt on bedside monitoring and evaluation advisor
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
[2023-05-09 18:26] VITALS: BP 152/79; PULSE 50; RESP 15; O2SAT 93
[2023-05-09 18:31] LABS: Basophils % 0.5 %; Eosinophils # 0.2 10^3/uL (0.0-0.8); Eosinophils % 2.8 %; Hematocrit 44.7 % (37-53); Lymphocytes # 2.2 10^3/uL (0.8-4.8); Lymphocytes % 29.5 %; Mean Corpuscular HGB Conc 33.8 g/dL (30-55); Mean Corpuscular Hemoglobin 32.4 pg (27-33); Mean Corpuscular Volume 95.9 fl (82-101); Mean Platelet Volume 9.2 fL (7.4-10.4); Monocytes # 0.6 10^3/uL (0.2-0.9); Monocytes % 8.5 %; Neutrophils % 58.3 %; Nucleated Red Blood Cells % 0 %; Platelet Count 270 10^3/cmm (157-399); Red Blood Count 4.66 10^6/uL (3.85-5.65); White Blood Count 7.39 10^3/uL (3.29-11.43)
[2023-05-09 18:44] LABS: INR 0.98 (0.8-1.2)
[2023-05-09 18:52] LABS: Troponin(5th) Baseline 31 ng/L (0-15)
[2023-05-09 18:54] LABS: Alanine Aminotransferase 10 U/L (0-41); Albumin Level 4.4 g/dL (3.5-5.2); Alkaline Phosphatase 110 U/L (40-130); Anion Gap 14.8 (5-19); Aspartate Amino Transferase 16 U/L (0-40); Blood Urea Nitrogen 11 mg/dL (8-23); Calcium 10.1 mg/dL (8.5-10.5); Carbon Dioxide 27 mmol/L (22-29); Chloride 100 mmol/L (98-107); Globulin 2.9 g/dL (1.3-4.6); Glucose 120 mg/dL (65-115); Osmolality Calculated 287 mOsm/kg (285-295); Potassium 3.8 mmol/L (3.5-5.1); Sodium 138 mmol/L (136-145); Total Protein 7.3 g/dL (6.6-8.7)
[2023-05-09] MEDS: aspirin 81 mg Chew Tablet 324 MG PO (19:14)
[2023-05-09 20:00] VITALS: BP 102/58; PULSE 50; RESP 15; O2SAT 97
--- NOTE | 2023-05-09 20:19 | ECG_ITS ---
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 Measurements Intervals [place] Rate: 51 P: 23 [place]: 200 QRS: 5 QRSD: 108 T: 121 QT: 448 QTc: 415 Interpretive Statements SINUS BRADYCARDIA WITH OCCASIONAL VENTRICULAR PREMATURE COMPLEXES LOW QRS VOLTAGE IN PRECORDIAL LEADS [QRS DEFLECTION < 1.0 mV IN CHEST LEADS] INCOMPLETE RIGHT BUNDLE BRANCH BLOCK [90+ ms QRS DURATION, TERMINAL R IN V1/V2, 40+ ms S IN I/aVL/V4/V5/V6] ANTEROSEPTAL MYOCARDIAL INFARCTION , OF INDETERMINATE AGE [40+ ms Q WAVE IN V1-V4] MODERATE T-WAVE ABNORMALITY, CONSIDER LATERAL ISCHEMIA [-0.1+ mV T-WAVE IN I/aVL/V5/V6] Compared to ECG 05/09/2023 18:12:22 Ventricular premature complex(es) now present T-wave abnormality now present Possible ischemia now present Indeterminate axis no longer present Myocardial infarct finding still present Electronically Signed On 05-09-2023 21:52:22 STORAGE SPECIALIST by Bakari Wilson M.D. [id number]
[2023-05-09 20:40] LABS: Troponin 5 2HR 30.94 ng/L (0-15)
[2023-05-09 20:41] LABS: Troponin 5 2HR Delta -0.06 ABS# (0-10)
[2023-05-09 21:10] VITALS: BP 103/59; PULSE 50; RESP 16; O2SAT 98
== END 2023-05-09 21:11 | disposition home or self-care (01) ==
PROVIDERS: Emergency Provider Emergency Medicine; PCP Family Medicine
DX: R07.9 Chest pain, unspecified (principal); Z79.02 Long term (current) use of antithrombotics/antiplatelets; Z79.82 Long term (current) use of aspirin; Z87.891 Personal history of nicotine dependence; I25.10 Atherosclerotic heart disease of native coronary artery without angina pectoris; I25.2 Old myocardial infarction
CPT/HCPCS: 71045; 80053; 84484; 85025; 85610; 93005; 99285

== ENCOUNTER → 2023-05-18 13:47 | Outpatient (BNVA) | payer OTHER, SELFPAY | PROVIDERS: PCP Family Medicine; Visit Provider Internal Medicine | DX: I50.20 Unspecified systolic (congestive) heart failure (principal); I48.91 Unspecified atrial fibrillation; I25.10 Atherosclerotic heart disease of native coronary artery without angina pectoris; Z87.891 Personal history of nicotine dependence | CPT/HCPCS: 99214 ==

== ENCOUNTER 2023-08-17 08:32 | Outpatient (CLI) | payer OTHER, SELFPAY ==
--- NOTE | 2023-08-17 08:35 | USCV_ITS ---
Star John Age: 82 Gender: M : 1940 Exam Date: 08/17/2023 08:53 Ordering Phys: Tami Wolf MD Technologist: CHRISTINA Exam Location: [facility] [place] Indication: ATAXIA Risk Factors: Previous Vascular Surgery: Right Brachial BP: / Left Brachial BP: / Right Left Velocity (cm/s) Spectral Plaque Velocity (cm/s) Spectral Plaque Syst/Diast Broadening Syst/Diast Broadening 103.50/19.30 Prox CCA 99.00 / 21.70 115.20/19.30 Mid CCA 96.20 / 26.10 104.80/20.60 Distal CCA 100.20/ 25.40 75.00/ 18.40 Prox ICA 76.50 / 19.90 74.00/ 14.30 Mid ICA 56.40 / 12.60 78.40/ 24.90 Distal ICA 76.50 / 30.80 85.30 ECA 82.00 0.70 ICA/CCA 0.80 Antegrade Vertebral Antegrade 50.40/ 18.00 cm/s 48.90/ 12.10 cm/s Tri Subclavian Tri 113.1 92.70 0 FINDINGS Comparison: none available. No significant elevation of systolic or diastolic velocities. Waveforms are normal. Mild carotid atherosclerosis. CONCLUSIONS Bilateral ICA stenosis less than 50%. Dr. Piedad Mosquera DO (Electronically Signed) Final Date: 17 August 2023 11:42 S
--- NOTE | 2023-08-17 08:35 | CT_ITS ---
WS: [id number] CT HEAD WITH AND WITHOUT CONTRAST HISTORY: ATAXIA TECHNIQUE: Noncontrast 3.0 mm axial images obtained from the vertex to the skull base. Additional humberto ging performed at 3.0 mm axial images status post IV contrast. Bone and soft tissue windows are revie wed. All CT scans at [facility] [place] use at least one of these dose optimization techniques: autom ated exposure control; mA and/or kV adjustment per patient size (includes targeted exams where dose i s matched to clinical indication); or iterative reconstruction. CONTRAST: Omnipaque 350; 100 mL IV. DLP: 2218.50 mGy.cm COMPARISON: None available. No acute intracranial hemorrhage, edema or midline shift. Mild atrophy and mild small vessel ischemic disease. No prior infarcts. Ventricles and extra-axial spaces are mildly prominent due to atrophy. M ild cerebellar atrophy. No enhancing mass or vascular malformations identified. Dural venous sinuses are normally enhancing. Visualized [place] is unremarkable. Paranasal sinuses as visualized: Clear. Mastoid air cells: Clear. Calvarium and scalp: Intact. IMPRESSION: 1. No acute intracranial hemorrhage or edema. 2. No enhancing mass. 3. Mild cerebral and cerebellar atrophy and mild small vessel ischemic disease. No prior infarct.
[2023-08-17 09:46] LABS: Blood Urea Nitrogen 9 mg/dL (8-23)
[2023-08-17] MEDS: iohexol 350 mg/mL 500 mL Btl (per mL) IV (09:52)
== END 2023-08-17 08:33 | disposition home or self-care (01) ==
LOC: RAD 08:32
PROVIDERS: PCP Family Medicine; Visit Provider Family Medicine
DX: I65.23 Occlusion and stenosis of bilateral carotid arteries (principal)
CPT/HCPCS: 70470; 82565; 84520; 93880; Q9967

== ENCOUNTER 2023-10-26 12:45 | Outpatient (CLI) | payer OTHER, SELFPAY ==
--- NOTE | 2023-10-26 12:02 | USCV_ITS ---
Star John Age: 82 Gender: M : 1940 Exam Date: 10/26/2023 12:36 Ordering Phys: Tami Wolf MD Technologist: DIMPLE Exam Location: [facility] [place] Indication: cardiomyopthay BP: 114 / 82 HR: 53 Rhythm: Sinus Technical Quality: Adequate MEASUREMENTS (Male / Female) Normal Values 2D ECHO LV Diastolic Diameter PLAX 6.1 cm 4.2 - 5.9 / 3.9 - 5.3 cm IVS Diastolic Thickness 0.6 cm 0.6 - 1.0 / 0.6 - 0.9 cm IVS Systolic Thickness 1.3 cm LVPW Diastolic Thickness 1.4 cm 0.6 - 1.0 / 0.6 - 0.9 cm LVPW Systolic Thickness 1.7 cm LVOT Diameter 2.0 cm LV Ejection Fraction 2D Teich 43.1 % LV Ejection Fraction MOD 2C 48.8 % LV Ejection Fraction 2C AL 46.2 % LA Diameter 4.0 cm RA Systolic Volume 4C AL 22.8 ml RA Systolic Volume 4C MOD 22.9 ml LA Sys Volume AL 27.9 cm cubed LA Sys Volume Index AL 13.3 cm cubed/m squared Aorta at Sinotubular Diameter 2.5 cm M-MODE LA Ao Ratio MM 1.0 AV Cusp Separation MM 1.6 cm DOPPLER AV Peak Velocity 102.0 cm/s LVOT Peak Velocity 91.0 cm/s AV Area Cont Eq vti 3.2 cm squared AV Area Cont Eq pk 2.8 cm squared MV Peak Velocity 119.0 cm/s MV Area PHT 2.5 cm squared Mitral E to A Ratio 0.8 TR Peak Velocity 167.0 cm/s TR Peak Gradient 11.2 mmHg TR Mean Velocity 130.0 cm/s TR Mean Gradient 7.4 mmHg TR Velocity Time Integral 50.0 cm TV Peak E Velocity 39.0 cm/s Right Atrial Pressure 3.0 mmHg Pulmonary Artery Systolic Pressu 14.2 mmHg FINDINGS Left Ventricle Moderately increased left ventricular cavity size. Normal left ventricular wall thickness. Severely decreased left ventricular systolic function. Left ventricular ejection fraction is estimated at 40 %. Did appear to be in the mid to distal anterior septal and apical akinesis. It is suggestive of disease in the LAD territory. Suggestive of disease suggestive of ischemic heart disease.Grade I/IV diastolic dysfunction (abnormal relaxation filling pattern), normal to mildly elevated filling pressures. Right Ventricle The right ventricle is normal in size and function. Right Atrium The right atrium is normal in size. Left Atrium The left atrium is normal in size. Mitral Valve Structurally normal mitral valve without significant stenosis or prolapse. There is moderate mitral regurgitation. Aortic Valve Structurally normal aortic valve without significant sclerosis or stenosis. There is no aortic regurgitation. Tricuspid Valve Structurally normal tricuspid valve without significant stenosis or regurgitation. Pulmonary artery systolic pressure is normal. Pulmonic Valve Structurally normal pulmonic valve without significant stenosis. There is no pulmonic regurgitation. Pericardium Normal pericardium without effusion. Aorta Normal ascending aorta dimension. IVC The inferior vena cava appears normal. CONCLUSIONS 1-Moderately increased left ventricular cavity size. Normal left ventricular wall thickness. Severely decreased left ventricular systolic function. Left ventricular ejection fraction is estimated at 40 %. Did appear to be in the mid to distal anterior septal and apical akinesis. It is suggestive of disease in the LAD territory. Suggestive of disease suggestive of ischemic heart disease.Grade I/IV diastolic dysfunction (abnormal relaxation filling pattern), normal to mildly elevated filling pressures. 2-Structurally normal mitral valve without significant stenosis or prolapse. There is moderate mitral regurgitation. 3-There is no pericardial effusion. 4-Right atrial pressure is around 5 mm of mercury. Andres Carreno MD (Electronically Signed) Final Date: 26 October 2023 20:37 S
== END 2023-10-26 12:46 | disposition home or self-care (01) ==
PROVIDERS: PCP Family Medicine; Visit Provider Family Medicine
DX: I50.1 Left ventricular failure, unspecified (principal); I51.7 Cardiomegaly; I34.0 Nonrheumatic mitral (valve) insufficiency; I50.30 Unspecified diastolic (congestive) heart failure
CPT/HCPCS: 93306

== ENCOUNTER → 2023-11-23 14:55 | Outpatient (BNVA) | payer OTHER, SELFPAY | PROVIDERS: PCP Family Medicine; Visit Provider Internal Medicine | DX: I50.20 Unspecified systolic (congestive) heart failure (principal); I48.91 Unspecified atrial fibrillation; I25.10 Atherosclerotic heart disease of native coronary artery without angina pectoris; Z87.891 Personal history of nicotine dependence | CPT/HCPCS: 99214 ==

== ENCOUNTER 2024-01-02 13:56 | Emergency (ER) | payer OTHER, MEDICARE, SELFPAY ==
[2024-01-02] VITALS (8 sets, daily range): BP systolic 103–130; BP diastolic 56–73; PULSE 46–63; RESP 16–20; TEMP 36.6; O2SAT 95–98
--- NOTE | 2024-01-02 13:57 | ECG_ITS ---
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 Measurements Intervals [place] Rate: 53 P: -1 DC: 188 QRS: -64 QRSD: 137 T: 55 QT: 400 QTc: 379 Interpretive Statements SINUS BRADYCARDIA WITH OCCASIONAL VENTRICULAR PREMATURE COMPLEXES RIGHT BUNDLE BRANCH BLOCK [120+ ms QRS DURATION, UPRIGHT V1, 40+ ms S IN I/aVL/V4/V5/V6] LEFT ANTERIOR FASCICULAR BLOCK [QRS AXIS <= -45, QR IN I, RS IN II] ANTEROSEPTAL MYOCARDIAL INFARCTION , OF INDETERMINATE AGE [40+ ms Q WAVE IN V1-V4] Compared to ECG 05/09/2023 20:19:20 Right bundle-branch block now present Left anterior fascicular block now present Incomplete right bundle-branch block no longer present T-wave abnormality no longer present Possible ischemia no longer present Myocardial infarct finding still present Electronically Signed On 01-02-2024 16:27:17 CDT by Rusty Newman M.D. [id number]
--- NOTE | 2024-01-02 13:57 | XR_ITS ---
WS: [id number] Exam: XR chest 1V portable [id number] Date/Time of Exam: 01/02/2024 2:02 PM Reason For Exam: cp Comparison with the latest exam 06/24/2022. The lungs are fully expanded. No consolidating infiltrates are seen. There are 2 ovoid probably calci fied nodules in the LEFT base both measuring slightly over 2 cm each. No pleural effusions. Heart siz e is normal. The mediastinum is normal in contour. Large hiatal hernia. Degenerative changes in the T -spine. Fusion hardware partially visualized in the lower C-spine. XR/XR chest 1V portable [id number] IMPRESSION: 1. 2 ovoid nodules in the LEFT lower lung zone along the LEFT diaphragm both me asuring slightly over 2 cm each. These appear to be calcified. They do not have suspicious appearance. 2. Prominent hiatal hernia. Follow-up with nonemergent PA and lateral chest x-ray recommended for further w ork-up.
[2024-01-02 14:31] LABS: Basophils % 0.2 %; Eosinophils # 0.1 10^3/uL (0.0-0.8); Eosinophils % 1.6 %; Hematocrit 42.3 % (37-53); Lymphocytes # 1.7 10^3/uL (0.8-4.8); Lymphocytes % 19.5 %; Mean Corpuscular HGB Conc 32.4 g/dL (30-55); Mean Corpuscular Hemoglobin 32.3 pg (27-33); Mean Corpuscular Volume 99.8 fl (82-101); Mean Platelet Volume 9.3 fL (7.4-10.4); Monocytes # 0.7 10^3/uL (0.2-0.9); Monocytes % 8.6 %; Neutrophils # 5.93 10^3/uL (1.8-7.7); Neutrophils % 69.7 %; Nucleated Red Blood Cells % 0 %; Platelet Count 272 10^3/cmm (157-399); Red Blood Count 4.24 10^6/uL (3.85-5.65); Red Cell Distribution Width 12.6 % (12.1-15.1); White Blood Count 8.51 10^3/uL (3.29-11.43)
[2024-01-02 14:45] LABS: INR 1.02 (0.8-1.2)
[2024-01-02 14:50] LABS: Troponin(5th) Baseline 13 ng/L (0-15)
[2024-01-02 14:51] LABS: Alanine Aminotransferase 10 U/L (0-41); Albumin Level 4.3 g/dL (3.5-5.2); Alkaline Phosphatase 102 U/L (40-130); Anion Gap 14.4 (5-19); Aspartate Amino Transferase 15 U/L (0-40); Blood Urea Nitrogen 11 mg/dL (8-23); Calcium 9.4 mg/dL (8.5-10.5); Carbon Dioxide 25 mmol/L (22-29); Chloride 102 mmol/L (98-107); Creatinine Clr Calc Pharmacy 67.9633; Globulin 2.5 g/dL (1.3-4.6); Glucose 109 mg/dL (65-115); Lipase 18 U/L (13-60); Osmolality Calculated 284 mOsm/kg (285-295); Potassium 4.4 mmol/L (3.5-5.1); Sodium 137 mmol/L (136-145); Total Bilirubin 1.3 mg/dL (0.15-1.2); Total Protein 6.8 g/dL (6.6-8.7)
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
[2024-01-02 15:54] LABS: NT Pro B Type Natriuretic Pept 357 pg/mL (0-450)
--- NOTE | 2024-01-02 15:57 | ECG_ITS ---
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 Measurements Intervals [place] Rate: 50 P: -2 IN: 184 QRS: -20 QRSD: 137 T: 31 QT: 426 QTc: 391 Interpretive Statements SINUS BRADYCARDIA INDETERMINATE AXIS RIGHT BUNDLE BRANCH BLOCK ANTEROSEPTAL MYOCARDIAL INFARCTION , OF INDETERMINATE AGE [40+ ms Q WAVE IN V1-V4] Compared to ECG 01/02/2024 13:57:34 Indeterminate axis now present Intraventricular conduction delay now present Ventricular premature complex(es) no longer present Left anterior fascicular block no longer present Myocardial infarct finding still present Electronically Signed On 01-02-2024 16:28:02 CDT by Rusty Newman M.D. [id number]
[2024-01-02 16:41] LABS: Troponin 5 2HR 12.98 ng/L (0-15)
[2024-01-02 16:44] LABS: Troponin 5 2HR Delta -0.02 ABS# (0-10)
[2024-01-02 17:39] LABS: Adenovirus Not Detected (NOT DETECT); Chlamydia Pneumoniae Not Detected (NOT DETECT); Coronavirus 229E,HKU1,NL63,OC4 Not Detected (NOT DETECT); Human Metapneumovirus Not Detected (NOT DETECT); Human Rhinovirus/Enterovirus Not Detected (NOT DETECT); Influenza A Not Detected (NOT DETECT); Influenza A H1 Not Detected (NOT DETECT); Influenza A H1-2009 Not Detected (NOT DETECT); Influenza A H3 Not Detected (NOT DETECT); Influenza B Not Detected (NOT DETECT); Mycoplasma Pneumoniae Not Detected (NOT DETECT); Parainfluenza Virus Type 1 Not Detected (NOT DETECT); Parainfluenza Virus Type 2 Not Detected (NOT DETECT); Parainfluenza Virus Type 3 Not Detected (NOT DETECT); Parainfluenza Virus Type 4 Not Detected (NOT DETECT); Respiratory Syncytial Virus A Not Detected (NOT DETECT); Respiratory Syncytial Virus B Not Detected (NOT DETECT); SARS-COV-2 Not Detected (NOT DETECT)
== END 2024-01-02 17:55 | disposition home or self-care (01) ==
PROVIDERS: Emergency Medicine; Emergency Provider Emergency Medicine; PCP Family Medicine
DX: R07.9 Chest pain, unspecified (principal); R91.1 Solitary pulmonary nodule; Z79.02 Long term (current) use of antithrombotics/antiplatelets; Z79.82 Long term (current) use of aspirin; Z11.52 Encounter for screening for COVID-19; R00.1 Bradycardia, unspecified; Z87.891 Personal history of nicotine dependence; I25.10 Atherosclerotic heart disease of native coronary artery without angina pectoris; I25.2 Old myocardial infarction
CPT/HCPCS: 36415; 71045; 80053; 83690; 83880; 84484; 85025; 85610; 87635; 93005; 99285

== ENCOUNTER → 2024-02-09 08:25 | Outpatient (BNVA) | payer OTHER, SELFPAY | PROVIDERS: PCP Family Medicine; Visit Provider Specialist | DX: G30.9 Alzheimer's disease, unspecified (principal); F02.80 Dementia in other diseases classified elsewhere, unspecified severity, without behavioral disturbance, psychotic disturbance, mood disturbance, and anxiety; I50.20 Unspecified systolic (congestive) heart failure; I25.10 Atherosclerotic heart disease of native coronary artery without angina pectoris; I48.91 Unspecified atrial fibrillation | CPT/HCPCS: 99204; 99205 ==

== ENCOUNTER 2024-03-22 12:04 | Emergency (ER) | payer OTHER, MEDICARE, SELFPAY ==
[2024-03-22 12:54] VITALS: BP 123/57; PULSE 42; RESP 17; TEMP 36.4; O2SAT 97; BMI 24.3
[2024-03-22 13:40] LABS: Basophils % 0.6 %; Eosinophils # 0.1 10^3/uL (0.0-0.8); Eosinophils % 2.1 %; Hematocrit 42.7 % (37-53); Lymphocytes # 1.6 10^3/uL (0.8-4.8); Lymphocytes % 23.5 %; Mean Corpuscular HGB Conc 33.7 g/dL (30-55); Mean Corpuscular Hemoglobin 32.4 pg (27-33); Mean Platelet Volume 9.1 fL (7.4-10.4); Monocytes # 0.5 10^3/uL (0.2-0.9); Monocytes % 7.9 %; Neutrophils % 65.8 %; Nucleated Red Blood Cells % 0 %; Platelet Count 239 10^3/cmm (157-399); Red Blood Count 4.45 10^6/uL (3.85-5.65); Red Cell Distribution Width 12.5 % (12.1-15.1); White Blood Count 6.69 10^3/uL (3.29-11.43)
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
[2024-03-22 14:09] LABS: Alanine Aminotransferase 10 U/L (0-41); Albumin Level 4.3 g/dL (3.5-5.2); Alkaline Phosphatase 99 U/L (40-130); Anion Gap 12.1 (5-19); Aspartate Amino Transferase 16 U/L (0-40); Blood Urea Nitrogen 11 mg/dL (8-23); Calcium 9.7 mg/dL (8.5-10.5); Carbon Dioxide 29 mmol/L (22-29); Chloride 100 mmol/L (98-107); Creatinine Clr Calc Pharmacy 61.1669; Globulin 2.3 g/dL (1.3-4.6); Glucose 111 mg/dL (65-115); NT Pro B Type Natriuretic Pept 286 pg/mL (0-450); Osmolality Calculated 284 mOsm/kg (285-295); Potassium 4.1 mmol/L (3.5-5.1); Sodium 137 mmol/L (136-145); Total Bilirubin 1.1 mg/dL (0.15-1.2); Total Protein 6.6 g/dL (6.6-8.7)
[2024-03-22 14:34] VITALS: BP 120/59; PULSE 49; O2SAT 97
== END 2024-03-22 14:35 | disposition home or self-care (01) ==
PROVIDERS: Emergency Medicine; Emergency Provider Physician Assistant; PCP Family Medicine
DX: Z03.89 Encounter for observation for other suspected diseases and conditions ruled out (principal); Z79.02 Long term (current) use of antithrombotics/antiplatelets; Z79.82 Long term (current) use of aspirin; Z87.891 Personal history of nicotine dependence; I25.10 Atherosclerotic heart disease of native coronary artery without angina pectoris
CPT/HCPCS: 36415; 80053; 83880; 85025; 99283

== ENCOUNTER → 2024-04-10 13:32 | Outpatient (BNVA) | payer OTHER, SELFPAY | PROVIDERS: PCP Family Medicine; Visit Provider Internal Medicine | DX: I50.20 Unspecified systolic (congestive) heart failure (principal); I48.91 Unspecified atrial fibrillation; I25.10 Atherosclerotic heart disease of native coronary artery without angina pectoris; R07.89 Other chest pain; Z87.891 Personal history of nicotine dependence; I25.2 Old myocardial infarction | CPT/HCPCS: 99214 ==

== ENCOUNTER 2024-04-17 09:15 | Outpatient (CLI) | payer OTHER, SELFPAY ==
--- NOTE | 2024-04-17 09:32 | NMCV_ITS ---
NM marilia perf SPECT r/s* [id number] Star John Age: 83 Gender: M : 1940 Exam Date: 04/17/2024 10:14 Ordering Phys: Rusty Newman M.D ([email or web address]) Technologist: SUNIL Mancini Exam Location: [facility] Indications: CP STRESS TEST Please [facility] IMAGE PROTOCOL Rest/Stress 1 Lexiscan Day Radiopharmaceutical Dose (mCi) Administration Site Administered by Rest: Tc-99m 10.6 IV Nikky Debby, SOFTWARE SOLUTIONS ARCHITECT Stress:Tc-99m 32.6 IV Nikky Debby, SOFTWARE SOLUTIONS ARCHITECT Rest: 17-Apr-2024 Discovery 630 Stress: 17-Apr-2024 Discovery 630 0.4mg Lexiscan. Supine position only as patient was unable to lay prone. SPECT RESULTS Technical Quality: Good Raw Data Analysis: Normal, PATIENT HAS HIATEL HERNIA Image Corrections: No attenuation or motion correction applied Summed Stress Score: 20 Summed Rest Score: 19 Summed Difference Score: 2 PERFUSION FINDINGS There are large areas of mostly fixed perfusion defects seen in all 3 coronary artery territories. This is consistent with large area of prior infarct with small areas of torin-infarct ischemia seen in LAD, left circumflex artery RCA territories. FUNCTIONAL RESULTS (calculated via Gated SPECT) Stress Image LV EF (%): 47 Stress EDV (mL):118 TID: 0.91 Stress ESV (mL):63 FUNCTIONAL FINDINGS: LV systolic function is mildly reduced with EF of 47% IMPRESSIONS 1. Abnormal myocardial perfusion imaging with large areas of prior infarct seen in all 3 coronary artery territories with small areas of torin-infarct ischemia. 2. LV systolic function is mildly reduced with EF of 47% Rusty Newman MD (Electronically Signed) Final Date: 17 April 2024 17:20 S
--- NOTE | 2024-04-17 09:32 | ECG_ITS ---
[employer] Test Date: 2024-04-17 Pat Name: Star John Department: Room: Gender: Male [employer]: : 1940 Requested By: Rusty Newman Order Number: [id number] Rolando MD: Rusty Newman M.D. Interpretive Statements LEXISCAN SESTAMIBI STRESS TEST Procedure: At the baseline, the blood pressure was 140/71 mmHg with a heart rate of 46bpm. The electrocardiogram showed sinus bradycardia, right bundle branch block with normal ST and T's. The Lexiscan was infused over a period of 20 seconds. A total of 0.4 mg of Lexiscan was infused. The stress phase was continued for a total of 5 minutes. Heart rate was at the end of stress phase was 57 bpm and a blood pressure of 112/66 mmHg. The EKG at the peak infusion revealed sinus bradycardia with no significant ST-T wave changes. Sestamibi was injected 20 seconds after the Lexiscan infusion. Blood pressure at the end of recovery phase was 105/63 mmHg with a heart rate of 58bpm. Conclusion: 1. Normal EKG response to Lexiscan infusion 2. No Lexiscan induced chest pain or cardiac arrhythmia. 3. Normal blood pressure and heart rate response. 4. Sestamibi/sestamibi perfusion scan pending; see separate report. Electronically Signed On 04-22-2024 08:53:44 CLIENT SERVICES MANAGER by Rusty Newman M.D. [email or web address]
[2024-04-17 09:33] VITALS: BMI 24.3
[2024-04-17] MEDS: regadenoson 0.4 Mg/5 ml Syringe IVP (11:00)
[2024-04-17 11:11] VITALS: BP 111/61; PULSE 59
== END 2024-04-17 09:16 | disposition home or self-care (01) ==
LOC: CDL 09:19
PROVIDERS: PCP Family Medicine; Visit Provider Internal Medicine
DX: R07.9 Chest pain, unspecified (principal); R06.02 Shortness of breath; R94.39 Abnormal result of other cardiovascular function study
CPT/HCPCS: 36415; 78452; 93017; 96374; A9500; J2785

== ENCOUNTER → 2024-05-09 09:24 | Outpatient (BNVA) | payer OTHER, SELFPAY | PROVIDERS: PCP Family Medicine; Visit Provider Specialist | DX: G30.9 Alzheimer's disease, unspecified (principal); F02.80 Dementia in other diseases classified elsewhere, unspecified severity, without behavioral disturbance, psychotic disturbance, mood disturbance, and anxiety; I50.20 Unspecified systolic (congestive) heart failure; I25.10 Atherosclerotic heart disease of native coronary artery without angina pectoris; I48.91 Unspecified atrial fibrillation | CPT/HCPCS: 99212; 99213 ==

== ENCOUNTER → 2024-05-30 15:13 | Outpatient (BNVA) | payer OTHER, SELFPAY | PROVIDERS: PCP Family Medicine; Visit Provider Internal Medicine | DX: I50.20 Unspecified systolic (congestive) heart failure (principal); I48.91 Unspecified atrial fibrillation; I25.10 Atherosclerotic heart disease of native coronary artery without angina pectoris; Z87.891 Personal history of nicotine dependence | CPT/HCPCS: 99214 ==

== ENCOUNTER → 2024-08-20 12:53 | Outpatient (BNVA) | payer OTHER, SELFPAY | PROVIDERS: PCP Family Medicine; Visit Provider Internal Medicine | DX: I50.20 Unspecified systolic (congestive) heart failure (principal); I48.91 Unspecified atrial fibrillation; I25.10 Atherosclerotic heart disease of native coronary artery without angina pectoris | CPT/HCPCS: 99213 ==

== ENCOUNTER → 2024-10-24 09:36 | Outpatient (BNVA) | payer OTHER, SELFPAY | PROVIDERS: PCP Family Medicine; Visit Provider Specialist | DX: G30.9 Alzheimer's disease, unspecified (principal); F02.80 Dementia in other diseases classified elsewhere, unspecified severity, without behavioral disturbance, psychotic disturbance, mood disturbance, and anxiety; I50.20 Unspecified systolic (congestive) heart failure; I25.10 Atherosclerotic heart disease of native coronary artery without angina pectoris; I48.91 Unspecified atrial fibrillation | CPT/HCPCS: 99213 ==

== ENCOUNTER → 2024-11-19 12:19 | Outpatient (BNVA) | payer OTHER, SELFPAY | PROVIDERS: PCP Family Medicine; Visit Provider Internal Medicine | DX: R07.89 Other chest pain (principal); I25.10 Atherosclerotic heart disease of native coronary artery without angina pectoris; I48.91 Unspecified atrial fibrillation; Z79.02 Long term (current) use of antithrombotics/antiplatelets; Z79.82 Long term (current) use of aspirin; I50.20 Unspecified systolic (congestive) heart failure; Z87.891 Personal history of nicotine dependence; I25.2 Old myocardial infarction | CPT/HCPCS: 99213 ==

== ENCOUNTER → 2025-01-13 08:17 | Outpatient (BNVA) | payer OTHER, SELFPAY | PROVIDERS: PCP Family Medicine; Visit Provider Podiatrist Foot & Ankle Surgery | DX: M79.671 Pain in right foot (principal); I73.9 Peripheral vascular disease, unspecified; L60.3 Nail dystrophy; L84 Corns and callosities; I25.10 Atherosclerotic heart disease of native coronary artery without angina pectoris; M21.41 Flat foot [pes planus] (acquired), right foot; M21.42 Flat foot [pes planus] (acquired), left foot; M20.41 Other hammer toe(s) (acquired), right foot; M20.42 Other hammer toe(s) (acquired), left foot; M20.21 Hallux rigidus, right foot; I50.20 Unspecified systolic (congestive) heart failure; M77.41 Metatarsalgia, right foot | CPT/HCPCS: 11055; 11721; 73630; 99204 ==

== ENCOUNTER → 2025-04-14 08:43 | Outpatient (BNVA) | payer OTHER, SELFPAY | PROVIDERS: PCP Family Medicine; Visit Provider Podiatrist Foot & Ankle Surgery | DX: L60.8 Other nail disorders (principal); I25.10 Atherosclerotic heart disease of native coronary artery without angina pectoris; L60.3 Nail dystrophy; M21.41 Flat foot [pes planus] (acquired), right foot; M21.42 Flat foot [pes planus] (acquired), left foot; M20.41 Other hammer toe(s) (acquired), right foot; M20.42 Other hammer toe(s) (acquired), left foot; M20.21 Hallux rigidus, right foot; I50.20 Unspecified systolic (congestive) heart failure; I73.9 Peripheral vascular disease, unspecified; L84 Corns and callosities; M77.41 Metatarsalgia, right foot | CPT/HCPCS: 99213 ==